=== PATIENT | male | born 1965 | race African-American/Black ===

== ENCOUNTER 2020-10-23 13:12 | Outpatient (RCR) | payer MEDICARE, MEDICAID, SELFPAY ==
--- NOTE | 2020-10-23 15:18 | PCPTNOTE ---
Patient:Jeremiah Corbett Date of :1965 Seated and mobility evaluation Thank you for referring this patient to [facility]. The patient has been evaluated for wheelchair seating and recommendations have been made, with assistance from a Rehab Medical provider present. The findings have been scanned into the patient's EMR. Please review, sign, date and return this recognition of care provided. I agree with and certify that the following plan for DME equipment is medically necessary. Nestor Flores MD 10/23/20
== END 2020-10-24 10:09 | disposition home or self-care (01) ==
LOC: ANHPT 13:12
PROVIDERS: PCP Internal Medicine; Referring Provider Internal Medicine; Visit Provider Internal Medicine
DX: G37.3 Acute transverse myelitis in demyelinating disease of central nervous system (principal)
CPT/HCPCS: 97163

== ENCOUNTER 2021-12-01 20:58 | Observation (INO) | payer MEDICARE, MEDICAID, SELFPAY ==
--- NOTE | ~2021-12-01 | US_ITS ---
EXAMINATION: US venous doppler [facility] DATE: 12/02/2021 09:23 INDICATION: Lower limb pain and swelling TECHNIQUE: Grayscale ultrasound images without and with compression and Doppler ultrasound images of the bilateral lower extremity veins were obtained. COMPARISON: None. FINDINGS: The visualized portions of right common femoral vein, profunda (deep) femoral vein, femoral vein, pop liteal vein, posterior tibial veins, peroneal veins, lesser saphenous vein and greater saphenous vein outflow are patent. The visualized portions of left common femoral vein, profunda femoral vein, femoral vein, popliteal v ein, posterior tibial veins, peroneal veins, lesser saphenous vein and greater saphenous vein outflow are patent. IMPRESSION: 1. No deep venous thrombosis in either lower limb. Reviewed, dictated and finalized at location B.
--- NOTE | ~2021-12-01 | US_ITS ---
EXAMINATION: US arterial ankle brachial ind DATE: 12/02/2021 14:39 INDICATION: Bilateral heel wounds. Diabetes. Hypercholesterolemia. Hypertension. Trophic changes and edema of the lower extremities. TECHNIQUE: Segmental pressures and plethysmographic and Doppler waveforms of the brachial and lower e xtremity arteries were obtained. COMPARISON: None. FINDINGS: Right and left brachial artery pressures of 102 mm Hg and 90 mm Hg, respectively, are concordant (nor mal difference <= 30 mmHg). The right ankle-brachial index (TERE) is 0.67 (normal >= 0.9-1.0). The right great toe-brachial index (TBI) is 0.53 (normal >= 0.65). Arterial Doppler waveforms are monophasic. The left TERE is 0.76. The left TBI is 0.66. Arterial Doppler waveforms are monophasic. IMPRESSION: Abnormally low bilateral TERE of 0.67 on the right and 0.76 on the left Abnormally low right TBI of 0.53 Reviewed, dictated and finalized at Location A. Reviewed, dictated and finalized at location A.
--- NOTE | ~2021-12-01 | XR_ITS ---
EXAMINATION: XR foot RT 2V INDICATION: Diabetic ulcer TECHNIQUE: Two views of the right foot are obtained. COMPARISON: None available FINDINGS: There appears to be a plantar soft tissue ulceration of the foot. There is dorsal soft tiss ue swelling overlying the metatarsals. Bone alignment is normal. There is no fracture. The joint spac es are maintained. IMPRESSION: 1. Soft tissue swelling and possible plantar ulceration of the foot without acute osseous abnormality . Reviewed, dictated and finalized at location F. IMPRESSION: 1. Soft tissue swelling and possible plantar ulceration of the foot without acu te osseous abnormality.
--- NOTE | ~2021-12-01 | CT_ITS ---
EXAMINATION: CT abdomen pelvis wo con DATE: 12/02/2021 08:42 INDICATION: Osteomyelitis. TECHNIQUE: Computed tomography (CT) of the abdomen and pelvis was performed without intravenous contr ast. Automated exposure control and iterative reconstruction technique were employed. The dose-length product was 816.42 mGy-cm. COMPARISON: Lumbar spine radiograph 11/30/2012 FINDINGS: The visualized portions of the lung bases demonstrate mild atelectasis. There is mild scarr ing in paraspinal right lower lobe. No pleural effusion. The heart size is normal. There are coronary artery calcifications. There are changes of coronary artery bypass grafting. No pericardial effusion . The liver, gallbladder, spleen, pancreas, adrenal glands, and kidneys are normal. There is no uroli thiasis. A penile prosthesis is noted. There is a large volume of stool in the colon. There are no di lated loops of bowel. The appendix is not visualized. There are no pathologically enlarged lymph node s. There is no free intraperitoneal fluid. There is a sacral decubitus ulcer. There is subcutaneous f at stranding in this area, consistent with inflammation. There are erosions of the coccyx, consistent with osteomyelitis. There are changes of anterior and posterior fusion procedures at L4-L5. There is moderate thoracic and lumbar spondylosis. IMPRESSION: 1. Sacral decubitus ulcer with coccygeal osteomyelitis. Reviewed, dictated and finalized at location A.
[2021-12-01 21:07] VITALS: BP 127/57; PULSE 80; RESP 18; TEMP 36.4; O2SAT 100
--- NOTE | 2021-12-01 22:49 | ED.WOUNDLAC ---
HPI - Wound/Laceration General Chief Complaint: Wound/Laceration Stated Complaint: foot pain, bleeding, swelling Time Seen by Provider: 12/01/21 22:35 Source: patient Mode of arrival: wheelchair Limitations: no limitations History of Present Illness HPI narrative: Pt WC bound for a year. Pt presents with wounds to heals and sacral area that are now bleeding and draining. Pt denies fever. Pt has had wound care in past but not currently. Treatments prior to arrival: bandage Related Data Home Medications Medication Instructions Recorded Confirmed amlodipine 5 mg-valsartan 320 mg 1 tablet PO DAILY 07/26/19 11/01/19 tablet dapagliflozin 10 mg tablet 10 mg PO DAILY 07/26/19 11/01/19 ergocalciferol (vitamin D2) 1,250 50,000 unit PO WEEKLY 07/26/19 11/01/19 mcg (50,000 unit) capsule gabapentin 300 mg capsule 300 mg PO DAILY 07/26/19 11/01/19 insulin detemir U-100 100 unit/mL 100 unit SUB-Q DAILY 07/26/19 11/01/19 (3 mL) subcutaneous pen lubiprostone 8 mcg capsule 8 mcg PO DAILY 07/26/19 11/01/19 metformin 1,000 mg tablet 1,000 mg PO DAILY 07/26/19 11/01/19 metoprolol succinate 50 mg 50 mg PO DAILY 07/26/19 11/01/19 tablet,extended release 24 hr nitroglycerin 0.4 mg sublingual 0.4 mg SUBLINGUAL Q5M PRN 07/26/19 11/01/19 tablet omeprazole 20 mg tablet,delayed 20 mg PO DAILY 07/26/19 11/01/19 release quetiapine 100 mg tablet 100 mg PO BID 07/26/19 11/01/19 rosuvastatin 20 mg tablet 20 mg PO DAILY 07/26/19 11/01/19 ticagrelor 90 mg tablet 90 mg PO Q12H 07/26/19 11/01/19 tizanidine 4 mg tablet 4 mg PO TID PRN 07/26/19 11/01/19 Allergies Allergy/AdvReac Type Severity Reaction Status Date / Time No Known Allergies Allergy Unverified 11/01/19 11:10 Review of Systems Review of Systems: All systems reviewed & are unremarkable except as noted in HPI and below PMFSH Past Medical History Medical History (Updated 12/02/21 @ 01:14 by Christy Martini III, DO) Anxiety Benign hypertension Chest pain Coronary artery disease (CAD) excluded Depression Diabetes mellitus Essential hypertension Hyperlipidemia Hypersomnia Mixed anxiety depressive disorder Peripheral vascular disease Vitamin D deficiency Surgical History Surgical History History of coronary artery bypass graft 2011 Family History Family History Father Epilepsy Other Hypertension Social History Social History Smoking status: Never smoker Exam Const: General: no acute distress Orientation/consciousness: patient oriented x3 Resp: Effort & Inspection: normal respiratory effort Auscultation: clear to auscultation bilaterally Cardio: Rate: regular rate Rhythm: regular rhythm GI: GI Palp: Yes Soft to palpation Auscultation: normal bowel sounds Back/Spine/Pelvis: Other: large deep sacral decub with drainage Skin: Other: decubitus ulcer to right heal bleeding Neuro: General: patient oriented x3 Extrem: General: edema Psych: Mental Status: mental status grossly normal Thought content: Yes Normal thought content present Course Vital Signs Vital signs: Vital Signs Temperature 97.6 F 12/01/21 21:07 Pulse Rate 80 12/01/21 21:07 Respiratory Rate 18 12/01/21 21:07 Blood Pressure 127/57 L 12/01/21 21:07 Pulse Oximetry 100 12/01/21 21:07 Temperature 97.8 F 12/01/21 22:55 Pulse Rate 102 H 12/02/21 02:34 Respiratory Rate 20 12/02/21 02:34 Blood Pressure 128/70 12/02/21 02:34 Pulse Oximetry 99 12/02/21 02:34 MDM - Wound/Laceration Lab Data Result diagrams: 12/02/21 00:09 12/02/21 00:09 Labs: Lab Results 12/02/21 12/02/21 12/02/21 Range/Units 00:08 00:09 00:09 WBC 10.0 (4.5-10.0) K/mm3 RBC 4.25 L (4.6-6.20) M/mm3 Hgb 11.3 L (14.0-18.0) g/dL Hct 37.2 L (42.0-52.0) % MCV
[2021-12-01 22:55] VITALS: BP 144/91; PULSE 78; RESP 24; TEMP 36.6; O2SAT 99
--- NOTE | 2021-12-01 22:59 | PC.NURSE ---
Patient assisted onto stretcher using Rosalee lift safely and with no incident. Sacral wound present. Malodorous. No dressing on arrival. New dressing applied. Decubitus ulcer present to bilat heels. R heel bleeding. Dressing from home removed. New dressing applied.
[2021-12-02] VITALS (11 sets, daily range): BP systolic 111–135; BP diastolic 64–80; PULSE 60–102; RESP 16–24; TEMP 37.1–37.6; O2SAT 97–100; BMI 28.2
[2021-12-02 00:25] LABS: Basophils Absolute Auto 0.1 K/mm3 (0.0-0.1); Basophils Percent Auto 0.8 % (0.2-1.2); Eosinophils Absolute Auto 0.2 K/mm3 (0-0.3); Eosinophils Percent Auto 2.4 % (0-4.4); Hematocrit 37.2 % (42.0-52.0); Hemoglobin 11.3 g/dL (14.0-18.0); Immature Granulocyte Absolute 0.03 K/mm3 (0.00-0.031); Immature Granulocyte Percent A 0.3 % (0-0.5); Mean Corpuscular HGB Conc 30.4 g/dl (32-36); Mean Corpuscular Hemoglobin 26.6 pg (26-34); Mean Corpuscular Volume 87.5 fl (80-100); Mean Platelet Volume 9.3 fl (7.4-10.4); Monocytes Absolute Auto 0.8 K/mm3 (0.1-0.6); Monocytes Percent Auto 7.7 % (2.6-8.5); Neutrophils Percent Auto 69.8 % (45.5-73.1); Platelet Count Result 431 k/mm3 (150-375); Red Blood Count 4.25 M/mm3 (4.6-6.20); Red Cell Distribution Width 15.2 % (11.5-14.5)
[2021-12-02 00:31] LABS: INR 1.1; Prothrombin Time 13.9 Seconds (11.1-14.7)
[2021-12-02 00:31] LABS: Lactic Acid Reflex 1.8 mmol/L (0.7-2.0)
[2021-12-02 00:32] LABS: Partial Thromboplastin Time 26.8 SECONDS (22.3-36.8)
[2021-12-02 00:34] LABS: Alanine Aminotransferase 24 U/L (4-50); Alkaline Phosphatase 101 U/L (38-126); Anion Gap 5 mmol/L (8-16); Aspartate Amino Transferase 25 U/L (17-59); Bilirubin,Total 0.2 mg/dL (0.2-1.3); Blood Urea Nitrogen 17 mg/dL (9-20); Carbon Dioxide 28 mmol/L (22-30); Chloride 104 mmol/L (98-107); Estimated CRCL calculation 90 ml/min; Estimated Glomerular Filt Rate > 60; Glucose 118 mg/dL (65-110); Potassium 4.1 mmol/L (3.4-5.0); Sodium 137 mmol/L (137-145)
--- NOTE | 2021-12-02 01:00 | PM.IMHP ---
H&P: HPI History of Present Illness Date/Time: 12/02/21 01:00 Chief Complaint: ULCERS Narrative: This is a 56-year-old male with past medical history significant for diabetes mellitus, peripheral diabetic neuropathy, coronary artery disease, peripheral vascular disease, hypertension, transverse myelitis with resultant paraplegia patient is wheelchair-bound, chronic pressure ulcers. Patient was brought to the emergency room due to 's concerns for his worsening in multiple pressure ulcers present in his sacral area hip area and heels. Patient denies any fevers, rigors, chills, nausea vomiting, chest pain, PND, orthopnea, shortness of breath, has good appetite. Patient has been in and out of nursing homes for the last several months according to he developed this sacral ulcers since September when he was at a resident at a [facility]. Preliminary workup is significant for CBC with a hemoglobin of 11. X-ray of the foot did not show bone abnormalities. Patient is been admitted for further evaluation management and treatment. Review of Systems Review of Systems: Worsening pressure ulcers presenting sacrum hip and heels Constitutional: Constitutional: Denies chills, Denies fatigue, Denies fever(s), Denies malaise, Denies night sweats, Denies poor appetite and Denies weakness Eyes: Eyes: Denies change in vision ENT: Denies dysphagia, Denies vertigo, Denies dizziness, Denies nasal congestion, Denies nasal discharge, Denies nasal obstruction and Denies odynophagia Respiratory: Respiratory: Denies cough, Denies excessive phlegm production and Denies dyspnea Gastrointestinal: Gastrointestinal: Denies abdominal pain, Denies dyspepsia, Denies heartburn, Denies nausea and Denies vomiting Genitourinary: Genitourinary: Reports no additional male genitourinary complaints and Reports as per HPI Musculoskeletal: Musculoskeletal: Denies arthralgias Integumentary/Breasts: Skin/Breast: Reports skin ulcer, Reports sores and Reports wounds Comments: Bilateral his, sacral area, hip area. Neurologic: Comments: Paraplegia Psychiatric: Psychiatric: Reports no additional psychiatric complaints and Reports as per HPI Endocrine: Endocrine: Denies cold intolerance, Denies heat intolerance, Denies polyphagia, Denies polydipsia and Denies palpitations Hematologic/Lymphatic: Hematologic/Lymphatic: Reports no additional hematologic/lymphatic complaints and Reports as per HPI Allergic/Immunologic: Allergic/Immunologic: Reports no additional allergic/immunologic complaints and Reports as per HPI [facility] Past Medical History Medical History (Updated 12/02/21 @ 04:01 by Dilma Velez MD) Anxiety Benign hypertension Chest pain Coronary artery disease (CAD) excluded Depression Diabetes mellitus Essential hypertension Hyperlipidemia Hypersomnia Mixed anxiety depressive disorder Peripheral vascular disease Vitamin D deficiency Surgical History Surgical History History of coronary artery bypass graft 2012 Family History Family History Father Epilepsy Social History Social History Smoking status: Never smoker Alcohol intake: current Substance use: never Spiritual care concerns: No Meds Home Medications and Allergies Home Medications Medication Instructions Recorded Confirmed Type amlodipine 5 mg-valsartan 320 mg 1 tablet PO DAILY 07/26/19 11/01/19 History tablet dapagliflozin 10 mg tablet 10 mg PO DAILY 07/26/19 11/01/19 History ergocalciferol (vitamin D2) 1,250 50,000 unit PO WEEKLY 07/26/19 11/01/19 History mcg (50,000 unit) capsule gabapentin 300 mg capsule 300 mg PO DAILY 07/26/19 11/01/19 History insulin detemir U-100 100 unit/mL 100 unit SUB-Q DAILY 07/26/19 11/01/19 History (3 mL) subcutaneous pen lubiprostone 8 mcg capsule 8 mcg PO DAILY
[2021-12-02 01:13] LABS: Erythrocyte Sedimentation Rate 33 mm/hr (0-20)
[2021-12-02] MEDS: PIPERACILLIN/TAZOBACTAM SOD 4.5 GM in SODIUM CHLORIDE 0.9% IV 100 ML 200 ML IVPB (02:14)
--- NOTE | 2021-12-02 03:17 | PC.NURSE ---
Patient arrived safely to floor and transferred to hospital bed with no incident.
--- NOTE | 2021-12-02 03:55 | ADMGEN ---
This patient, Jeremiah Rodriguez , was admitted to 3 [facility] Surg Room 307-01. Patient/family oriented to hospital policies and general routines including ID bracelet, bed and alarms, visiting hours, pain management, procedures, bathroom and other care routines, personal items, smoking policy, room service/diet, and visiting hours. Information on how to activate the Rapid Response Team has been discussed. Patient/Family are encouraged to report perceived risks to care and to ask questions if they do not understand what they are told or what they should do.
[2021-12-02 07:28] LABS: Hemoglobin A1C 6.4 % (<5.7)
[2021-12-02 07:55] LABS: Glucose Point of Care 130 mg/dl (65-105)
--- NOTE | 2021-12-02 10:12 | P.PNIM_ITS ---
Progress Note: A&P Assessment and Plan (1) Osteomyelitis of coccyx: Code(s): M86.9 - Osteomyelitis, unspecified Status: Acute Assessment and Plan: * CT abdomen pelvis showed sacral decubitus ulcer with coccygeal osteomyelitis. * Blood cultures pending * Wound cultures taken today. * Surgery and Wound Care been consulted and advised the wounds have no active infection with granulating tissue in the base, which appear stable. Clinically does not appear to be acute osteomyelitis d/t WBC count normal, afebrile, no exposed bone, and healthy granulating tissue. * Recommend continue local wound care for now and monitor, no surgical debridement, D/C IV abx. * Follow up in OP wound care in [place], [place]. * silver gel dressing changes and cover with mepilex border dressing. * Likely discharge tomorrow. (2) Decubitus ulcer of sacral area: Qualifiers: Pressure injury stage: unspecified pressure injury stage Qualified Code(s): L89.159 - Pressure ulcer of sacral region, unspecified stage Code(s): L89.159 - Pressure ulcer of sacral region, unspecified stage Status: Acute Assessment and Plan: * Patient started on vancomycin in ER. Will continue until cultures returned. * Surgery consulted, will follow for recommendations. * Wound care consulted, and we do appreciate their recommendations. * Local care, dressing changes. * Around the clock turning schedule Q 2 hrs * Plan as above. (3) Decubitus ulcer of foot: Qualifiers: Laterality: right Pressure injury stage: unspecified pressure injury stage Qualified Code(s): L89.899 - Pressure ulcer of other site, unspecified stage Code(s): L89.899 - Pressure ulcer of other site, unspecified stage Status: Acute Assessment and Plan: * Right foot with heel and plantar ulcers * Left heel with healed ulcer. * Foot x-ray showed soft tissue swelling and possible plantar ulceration of the foot without acute osseous abnormality * Wabble boots to keep heels elevated. * Eucerin cream for legs and feet. (4) Peripheral vascular disease: Code(s): I73.9 - Peripheral vascular disease, unspecified Status: Acute Assessment and Plan: * ABIs show abnormally low bilateral TERE of 0.67 on the right and 0.76 on the left. Abnormally low right TBI of 0.53 * Chronic appearing nonhealing ulcers of the right and left foot. * Patient is non-ambulatory, PT/ OT ordered. * Venous duplex showed no DVTs. * Will recommend outpatient follow-up with Vascular Surgery. (5) Allergic asthma: Code(s): J45.909 - Unspecified asthma, uncomplicated Status: Acute Assessment and Plan: Continue albuterol Not actively wheezing (6) Benign hypertension: Code(s): I10 - Essential (primary) hypertension Status: Acute Assessment and Plan: * Continue home meds * Continue to monitor * Patient is normotensive (7) Diabetes mellitus: Code(s): E11.9 - Type 2 diabetes mellitus without complications Status: Acute Assessment and Plan: * Blood glucose 118 today. * Continue home meds,Holding metformin * Accu-Cheks AC and HS * Carb consistent diet. (8) DVT prophylaxis: Code(s): Z29.9 - Encounter for prophylactic measures, unspecified Status: Acute Assessment and Plan: SCDs (9) Coronary artery disease: Code(s): I25.10 - Atherosclerotic heart disease of [place] coronary artery without angina pectoris Status: Acute Assessment and Plan: * Patient has past med
--- NOTE | 2021-12-02 10:12 | PM.IMPN ---
Progress Note: A&P Assessment and Plan (1) Osteomyelitis of coccyx: Code(s): M86.9 - Osteomyelitis, unspecified Status: Acute Assessment and Plan: CT abdomen pelvis showed sacral decubitus ulcer with coccygeal osteomyelitis. Blood cultures pending Wound cultures taken today. Surgery and Wound Care been consulted and advised the wounds have no active infection with granulating tissue in the base, which appear stable. Clinically does not appear to be acute osteomyelitis d/t WBC count normal, afebrile, no exposed bone, and healthy granulating tissue. Recommend continue local wound care for now and monitor, no surgical debridement, D/C IV abx. Follow up in OP wound care in [place], [place]. silver gel dressing changes and cover with mepilex border dressing. Likely discharge tomorrow. (2) Decubitus ulcer of sacral area: Qualifiers: Pressure injury stage: unspecified pressure injury stage Qualified Code(s): L89.159 - Pressure ulcer of sacral region, unspecified stage Code(s): L89.159 - Pressure ulcer of sacral region, unspecified stage Status: Acute Assessment and Plan: Patient started on vancomycin in ER. Will continue until cultures returned. Surgery consulted, will follow for recommendations. Wound care consulted, and we do appreciate their recommendations. Local care, dressing changes. Around the clock turning schedule Q 2 hrs Plan as above. (3) Decubitus ulcer of foot: Qualifiers: Laterality: right Pressure injury stage: unspecified pressure injury stage Qualified Code(s): L89.899 - Pressure ulcer of other site, unspecified stage Code(s): L89.899 - Pressure ulcer of other site, unspecified stage Status: Acute Assessment and Plan: Right foot with heel and plantar ulcers Left heel with healed ulcer. Foot x-ray showed soft tissue swelling and possible plantar ulceration of the foot without acute osseous abnormality Wabble boots to keep heels elevated. Eucerin cream for legs and feet. (4) Peripheral vascular disease: Code(s): I73.9 - Peripheral vascular disease, unspecified Status: Acute Assessment and Plan: ABIs show abnormally low bilateral TERE of 0.67 on the right and 0.76 on the left. Abnormally low right TBI of 0.53 Chronic appearing nonhealing ulcers of the right and left foot. Patient is non-ambulatory, PT/ OT ordered. Venous duplex showed no DVTs. Will recommend outpatient follow-up with Vascular Surgery. (5) Allergic asthma: Code(s): J45.909 - Unspecified asthma, uncomplicated Status: Acute Assessment and Plan: Continue albuterol Not actively wheezing (6) Benign hypertension: Code(s): I10 - Essential (primary) hypertension Status: Acute Assessment and Plan: Continue home meds Continue to monitor Patient is normotensive (7) Diabetes mellitus: Code(s): E11.9 - Type 2 diabetes mellitus without complications Status: Acute Assessment and Plan: Blood glucose 118 today. Continue home meds,Holding metformin Accu-Cheks AC and HS Carb consistent diet. (8) DVT prophylaxis: Code(s): Z29.9 - Encounter for prophylactic measures, unspecified Status: Acute Assessment and Plan: SCDs (9) Coronary artery disease: Code(s): I25.10 - Atherosclerotic heart disease of [place] coronary artery without angina pectoris Status: Acute Assessment and Plan: Patient has past medical history of CABG. Chest pain-free at present. Continue ticagrelor. Continue to monitor Subjective Date/time seen: 12/02/21 10:12 56-year-old male with past medical history of hypertension, diabetes mellitus, CABG, peripheral vascular disease, admitted for concerns of decubitus ulcers on his sacrum and right heel. Patient was examined at bedside today. He denies any current pain, but requests physical therapy. He states
--- NOTE | 2021-12-02 11:26 | PM.CNGS ---
Assessment and Plan Assessment and plan (1) Decubitus ulcer of sacral area: Qualifiers: Pressure injury stage: unspecified pressure injury stage Qualified Code(s): L89.159 - Pressure ulcer of sacral region, unspecified stage Code(s): L89.159 - Pressure ulcer of sacral region, unspecified stage Status: Acute Assessment and Plan: Stage III chronic sacral decubitus ulcer with granulating tissue in the base and no signs of active infection. He also has a chronic stage II right ischial decubitus ulcer that has granulating tissue without any signs of infection. These wounds appears stable at this time. CT abdomen and pelvis reviewed with evidence of bony erosion of the coccyx, concerning for coccygeal osteomyelitis, no fluid collection or abscess. His WBC count is normal and he is afebrile. There is no bone exposed and there is healthy granulating tissue at the base of the sacral wound. Clinically, this does not correlate with acute osteomyelitis. The patient is a poor historian and it is difficult to decipher how long he has had these wounds. It is possible this could be related to chronic osteomyelitis, but without any signs of active infection or exposed bone, we would recommend to continue with local wound care for now and monitor. If he develops leukocytosis or fever > 100.5F, then we could consider treating him acutely. Would recommend continuing local wound care with silver gel dressing changes and cover with mepilex border dressing. No indication for debridement or surgical intervention at this time. Recommend frequent turning and pressure offloading. Discussed the importance of taking care of these wounds at home and preventing pressure for extended periods of time on his wounds. The patient is followed at a wound clinic in [place] and believes he was last seen about 2 months ago. Would recommend he follow-up there after discharge for further management of his wounds. (2) Decubitus ulcer of foot: Qualifiers: Laterality: right Pressure injury stage: unspecified pressure injury stage Qualified Code(s): L89.899 - Pressure ulcer of other site, unspecified stage Code(s): L89.899 - Pressure ulcer of other site, unspecified stage Status: Acute Assessment and Plan: Stage II right decubitus heel ulcer and right plantar diabetic foot ulcer. Both wounds appear stable with healthy granulation tissue forming and no signs of active infection. Plain films of the right foot showed no evidence of osteomyelitis. Would recommend continuing local wound care with silver gel dressing changes. No indication for debridement or surgical intervention at this time. Will order waffle boots and keep heels elevated off bed. Also will order Eucerin cream for his lower legs and feet due to his dry skin. (3) Osteomyelitis of coccyx: Code(s): M86.9 - Osteomyelitis, unspecified Status: Acute Assessment and Plan: CT reviewed and suggests coccygeal osteomyelitis. See plan above, under sacral decubitus ulcer. (4) Paraplegia: Code(s): G82.20 - Paraplegia, unspecified Status: Chronic (5) Peripheral vascular disease: Code(s): I73.9 - Peripheral vascular disease, unspecified Status: Acute Assessment and Plan: There is mention of peripheral vascular disease, but nonspecific. He has very weak pedal pulses on palpation. Would recommend TERE's to further evaluate his arterial flow due to his chronic right foot ulcers. (6) Diabetes mellitus: Code(s): E11.9 - Type 2 diabetes mellitus without complications Status: Acute Assessment and Plan: Discussed the importance of glycemic control for wound healing. Hgb A1C 6.4 on admission, so he seems fairly well controlled. (7) Coronary artery disease: Code(s): I25.10 - Atherosclerotic heart disease of [place] coronary artery without angina pectoris Status: Acute (8) Antiplatelet or antithrombotic long-term use
[2021-12-02 11:47] LABS: Glucose Point of Care 102 mg/dl (65-105)
--- NOTE | 2021-12-02 12:49 | PC.NURSE ---
On 12/02/21, the student, Philly Escoto, provided care and completed [facility] documentation on this patient. I have reviewed the student's documentation and agree with the findings.
[2021-12-02] MEDS: LUBIPROSTONE 24 MCG CAPSULE PO (12:51)
[2021-12-02] MEDS: TIZANIDINE HCL 4 MG TABLET PO ×2 (12:51→21:13)
[2021-12-02] MEDS: PANTOPRAZOLE 40 MG TABLET PO (12:51)
[2021-12-02] MEDS: ROSUVASTATIN 10 MG TABLET 40 MG PO (12:52)
[2021-12-02] MEDS: ENOXAPARIN 40 MG/0.4 ML SYRINGE SUB-Q (12:52)
[2021-12-02] MEDS: EZETIMIBE 10 MG TABLET PO (12:52)
[2021-12-02] MEDS: SILVERGEL (ELTA) 45 ML 1 APPLIC TOPICAL (12:52)
[2021-12-02] MEDS: EMPAGLIFLOZIN 25 MG TABLET PO (12:53)
[2021-12-02] MEDS: EUCERIN CREAM 120 GM JAR 1 APPLIC TOPICAL (15:17)
[2021-12-02 16:48] LABS: Glucose Point of Care 178 mg/dl (65-105)
--- NOTE | 2021-12-02 18:05 | PC.NURSE ---
Home medications are not fully updated and patient is unable to confirm all home medications. Patient stated My doctor has not filled a lot of my prescriptions. Pt stated Gisella maynard, helps the patient give him his scheduled medications. RN attempted to call pt's conor at [phone]. RN received a return phone call at [phone]. Conor was unable to confirm majority of the pt's medications. RN received another return phone call at [phone]. Pt's conor is planning on bringing the patient's medication bottles to our facility [facility] (12/02/2021).
[2021-12-02 21:22] LABS: Glucose Point of Care 258 mg/dl (65-105)
[2021-12-03 06:00] VITALS: BP 138/75; PULSE 81; RESP 18; TEMP 37; O2SAT 100
[2021-12-03 06:07] LABS: Basophils Absolute Auto 0.1 K/mm3 (0.0-0.1); Basophils Percent Auto 0.7 % (0.2-1.2); Eosinophils Absolute Auto 0.2 K/mm3 (0-0.3); Eosinophils Percent Auto 2.9 % (0-4.4); Hematocrit 31.1 % (42.0-52.0); Immature Granulocyte Absolute 0.02 K/mm3 (0.00-0.031); Immature Granulocyte Percent A 0.3 % (0-0.5); Lymphocytes Absolute Auto 2.04 K/mm3 (0.9-3.2); Lymphocytes Percent Auto 28.4 % (18.3-44.2); Mean Corpuscular HGB Conc 32.2 g/dl (32-36); Mean Corpuscular Hemoglobin 26.9 pg (26-34); Mean Corpuscular Volume 83.6 fl (80-100); Mean Platelet Volume 9.1 fl (7.4-10.4); Monocytes Absolute Auto 0.6 K/mm3 (0.1-0.6); Monocytes Percent Auto 8.6 % (2.6-8.5); Neutrophils Absolute Auto 4.2 K/mm3 (1.3-6.7); Neutrophils Percent Auto 59.1 % (45.5-73.1); Platelet Count Result 319 k/mm3 (150-375); Red Blood Count 3.72 M/mm3 (4.6-6.20); Red Cell Distribution Width 14.6 % (11.5-14.5); White Blood Count 7.2 K/mm3 (4.5-10.0)
[2021-12-03 06:27] LABS: Alanine Aminotransferase 24 U/L (4-50); Albumin Level 3.2 g/dL (3.5-5.1); Alkaline Phosphatase 86 U/L (38-126); Anion Gap 3 mmol/L (8-16); Aspartate Amino Transferase 24 U/L (17-59); Bilirubin,Total 0.3 mg/dL (0.2-1.3); Blood Urea Nitrogen 11 mg/dL (9-20); Calcium 8.3 mg/dL (8.4-10.2); Carbon Dioxide 26 mmol/L (22-30); Chloride 105 mmol/L (98-107); Estimated CRCL calculation 86 ml/min; Estimated Glomerular Filt Rate > 60; Glucose 83 mg/dL (65-110); Potassium 3.5 mmol/L (3.4-5.0); Sodium 134 mmol/L (137-145)
[2021-12-03] MEDS: TIZANIDINE HCL 4 MG TABLET PO ×2 (06:51→13:49)
--- NOTE | 2021-12-03 07:21 | P.DS_ITS ---
DS: Admitting Diagnosis Discharge Date 12/03/21 1200 Admitting Diagnosis Chronic Pressure Ulcers DS: Discharge Diagnosis Discharge Diagnosis (1) Osteomyelitis of coccyx: Code(s): M86.9 - Osteomyelitis, unspecified Status: Acute Assessment and Plan: 56-year-old male with past medical history of hypertension, diabetes mellitus, CABG, peripheral vascular disease, admitted for concerns of decubitus ulcers on his sacrum and right heel that have been worsening lately. * CT abdomen pelvis showed sacral decubitus ulcer with coccygeal osteomyelitis. * Blood cultures showed no growth. * Surgery and Wound Care been consulted and advised the wounds have no active infection with granulating tissue in the base, which appear stable. Clinically does not appear to be acute osteomyelitis d/t WBC count normal, afebrile, no exposed bone, and healthy granulating tissue. * Recommend continue local wound care for now and monitor, no surgical debridement, D/C IV abx. * Follow up in outpatient wound care in [place], [place]. * For wound care: silver gel dressing changes and cover with mepilex border dr ortiz. * Wound cultures pending, will follow these. * Return if signs of infection, to include fever, warmth, redness, increased pain or leakage from the ulcers. PT recommended home health facility upon discharge, patient will be staying at home with girlfriend. * Discussed with care coordination, and patient does not currently qualify for rehab. Patient will be discharged to home. He is requesting ambulance transport. Care coordination has confirmed home health care with [facility] is in place. (2) Decubitus ulcer of sacral area: Qualifiers: Pressure injury stage: unspecified pressure injury stage Qualified Code(s): L89.159 - Pressure ulcer of sacral region, unspecified stage Code(s): L89.159 - Pressure ulcer of sacral region, unspecified stage Status: Acute Assessment and Plan: * Plan as above. (3) Decubitus ulcer of foot: Qualifiers: Laterality: right Pressure injury stage: unspecified pressure injury stage Qualified Code(s): L89.899 - Pressure ulcer of other site, unspecified stage Code(s): L89.899 - Pressure ulcer of other site, unspecified stage Status: Acute Assessment and Plan: * Right foot with heel and plantar ulcers * Left heel with healed ulcer. * Foot x-ray showed soft tissue swelling and possible plantar ulceration of the foot without acute osseous abnormality * Eucerin cream for legs and feet due to dryness- continue after discharge. (4) Peripheral vascular disease: Code(s): I73.9 - Peripheral vascular disease, unspecified Status: Acute Assessment and Plan: * ABIs show abnormally low bilateral TERE of 0.67 on the right and 0.76 on the left. Abnormally low right TBI of 0.53 * Chronic appearing nonhealing ulcers of the right and left foot. * Patient is non-ambulatory, PT/ OT ordered. * Patient advised to continue LE strengthening, endurance building activities, and safety education. Patient uses electric wheelchair baseline and girlfriend able to assist with transfers to bed, mobility. * Venous duplex showed no DVTs. * Will recommend outpatient follow-up with Vascular Surgery. (5) Allergic asthma: Code(s): J45.909 - Unspecified asthma, uncomplicated Status: Acute Assessment and Plan: * Continue albuterol * Not actively wheezing * Continue home inhaler therapy as needed.
--- NOTE | 2021-12-03 07:21 | PM.DS ---
DS: Admitting Diagnosis Discharge Date 12/03/21 1200 Admitting Diagnosis Chronic Pressure Ulcers DS: Discharge Diagnosis Discharge Diagnosis (1) Osteomyelitis of coccyx: Code(s): M86.9 - Osteomyelitis, unspecified Status: Acute Assessment and Plan: 56-year-old male with past medical history of hypertension, diabetes mellitus, CABG, peripheral vascular disease, admitted for concerns of decubitus ulcers on his sacrum and right heel that have been worsening lately. CT abdomen pelvis showed sacral decubitus ulcer with coccygeal osteomyelitis. Blood cultures showed no growth. Surgery and Wound Care been consulted and advised the wounds have no active infection with granulating tissue in the base, which appear stable. Clinically does not appear to be acute osteomyelitis d/t WBC count normal, afebrile, no exposed bone, and healthy granulating tissue. Recommend continue local wound care for now and monitor, no surgical debridement, D/C IV abx. Follow up in outpatient wound care in [place], [place]. For wound care: silver gel dressing changes and cover with mepilex border dressing. Wound cultures pending, will follow these. Return if signs of infection, to include fever, warmth, redness, increased pain or leakage from the ulcers. PT recommended home health facility upon discharge, patient will be staying at home with girlfriend. Discussed with care coordination, and patient does not currently qualify for rehab. Patient will be discharged to home. He is requesting ambulance transport. Care coordination has confirmed home health care with [facility] is in place. (2) Decubitus ulcer of sacral area: Qualifiers: Pressure injury stage: unspecified pressure injury stage Qualified Code(s): L89.159 - Pressure ulcer of sacral region, unspecified stage Code(s): L89.159 - Pressure ulcer of sacral region, unspecified stage Status: Acute Assessment and Plan: Plan as above. (3) Decubitus ulcer of foot: Qualifiers: Laterality: right Pressure injury stage: unspecified pressure injury stage Qualified Code(s): L89.899 - Pressure ulcer of other site, unspecified stage Code(s): L89.899 - Pressure ulcer of other site, unspecified stage Status: Acute Assessment and Plan: Right foot with heel and plantar ulcers Left heel with healed ulcer. Foot x-ray showed soft tissue swelling and possible plantar ulceration of the foot without acute osseous abnormality Eucerin cream for legs and feet due to dryness- continue after discharge. (4) Peripheral vascular disease: Code(s): I73.9 - Peripheral vascular disease, unspecified Status: Acute Assessment and Plan: ABIs show abnormally low bilateral TERE of 0.67 on the right and 0.76 on the left. Abnormally low right TBI of 0.53 Chronic appearing nonhealing ulcers of the right and left foot. Patient is non-ambulatory, PT/ OT ordered. Patient advised to continue LE strengthening, endurance building activities, and safety education. Patient uses electric wheelchair baseline and girlfriend able to assist with transfers to bed, mobility. Venous duplex showed no DVTs. Will recommend outpatient follow-up with Vascular Surgery. (5) Allergic asthma: Code(s): J45.909 - Unspecified asthma, uncomplicated Status: Acute Assessment and Plan: Continue albuterol Not actively wheezing Continue home inhaler therapy as needed. (6) Benign hypertension: Code(s): I10 - Essential (primary) hypertension Status: Acute Assessment and Plan: Continue home meds Continue to monitor Patient has been normotensive during this stay. (7) Diabetes mellitus: Code(s): E11.9 - Type 2 diabetes mellitus without complications Status: Acute Assessment and Plan: Blood glucose 118 today. Continue home meds and restart metformin. Continu
[2021-12-03 07:26] LABS: Glucose Point of Care 79 mg/dl (65-105)
--- NOTE | 2021-12-03 07:45 | PC.NURSE ---
Pts friend did not bring home medications. Patient said she could not find the hospital .
[2021-12-03 08:08] VITALS: PULSE 83
[2021-12-03] MEDS: carvediloL 6.25 MG TABLET PO ×2 (08:08→16:39)
[2021-12-03] MEDS: EMPAGLIFLOZIN 25 MG TABLET PO (08:09)
[2021-12-03] MEDS: ROSUVASTATIN 10 MG TABLET 40 MG PO (08:11)
[2021-12-03] MEDS: EZETIMIBE 10 MG TABLET PO (08:12)
[2021-12-03] MEDS: EUCERIN CREAM 120 GM JAR 1 APPLIC TOPICAL (08:13)
[2021-12-03] MEDS: SILVERGEL (ELTA) 45 ML 1 APPLIC TOPICAL (08:13)
[2021-12-03] MEDS: ENOXAPARIN 40 MG/0.4 ML SYRINGE SUB-Q (08:14)
[2021-12-03 11:44] LABS: Glucose Point of Care 107 mg/dl (65-105)
[2021-12-03 11:48] VITALS: BMI 28.2
--- NOTE | 2021-12-03 12:12 | PM.PNGS ---
Progress Note: A&P Assessment and Plan (1) Decubitus ulcer of sacral area: Qualifiers: Pressure injury stage: unspecified pressure injury stage Qualified Code(s): L89.159 - Pressure ulcer of sacral region, unspecified stage Code(s): L89.159 - Pressure ulcer of sacral region, unspecified stage Status: Acute Assessment and Plan: Stage III chronic sacral decubitus ulcer with granulating tissue in the base and no signs of active infection. He also has a chronic stage II right ischial decubitus ulcer that has granulating tissue without any signs of infection. These wounds appears stable at this time. CT abdomen and pelvis reviewed with evidence of bony erosion of the coccyx, concerning for coccygeal osteomyelitis, no fluid collection or abscess. His WBC count is normal and he remains afebrile. There is no bone exposed and there is healthy granulating tissue at the base of the sacral wound. Clinically, this does not correlate with acute osteomyelitis. There is no indication for surgical intervention. Would recommend to continue with local wound care with silver gel dressing changes. Educated the patient again on frequent turning and repositioning even when up in the wheelchair during the day. Okay to discharge from our standpoint. No antibiotics needed. Follow-up with wound care in [place]. (2) Decubitus ulcer of foot: Qualifiers: Laterality: right Pressure injury stage: unspecified pressure injury stage Qualified Code(s): L89.899 - Pressure ulcer of other site, unspecified stage Code(s): L89.899 - Pressure ulcer of other site, unspecified stage Status: Acute Assessment and Plan: Stage II right decubitus heel ulcer and right plantar diabetic foot ulcer. Both wounds appear stable with healthy granulation tissue forming and no signs of active infection. Plain films of the right foot showed no evidence of osteomyelitis. Recommend continuing local wound care with silver gel dressing changes. No indication for debridement or surgical intervention at this time. Continue waffle boots and elevating heels off bed. Continue Eucerin cream for his lower legs and feet due to his dry skin. Okay to discharge. No antibiotics needed. Follow-up with wound care in [place]. (3) Osteomyelitis of coccyx: Code(s): M86.9 - Osteomyelitis, unspecified Status: Acute Assessment and Plan: CT reviewed and suggests coccygeal osteomyelitis. See plan above, under sacral decubitus ulcer. (4) Paraplegia: Code(s): G82.20 - Paraplegia, unspecified Status: Chronic (5) Peripheral vascular disease: Code(s): I73.9 - Peripheral vascular disease, unspecified Status: Acute Assessment and Plan: TERE's show decreased TERE bilaterally, worse on right, and decreased right TBI with borderline left TBI. Would benefit from outpatient referral to vascular surgery to see if he would benefit from any surgical intervention for improved arterial flow to help promote healing for his right foot ulcers. Discussed this all with the patient. (6) Diabetes mellitus: Code(s): E11.9 - Type 2 diabetes mellitus without complications Status: Acute (7) Coronary artery disease: Code(s): I25.10 - Atherosclerotic heart disease of [place] coronary artery without angina pectoris Status: Acute (8) Antiplatelet or antithrombotic long-term use: Code(s): Z79.02 - can worker (current) use of antithrombotics/antiplatelets Status: Acute Additional Plan I have discussed the patient's case and plan of care with Dr. Lopez Subjective Subjective Date/Time Seen: 12/03/21 12:12 Patient reports: no new complaints and afebrile Interval history: Patient seen and examined. He has no specific complaints at the time of my exam. Tolerating his diet. He has been afebrile and his WBC normal today. Per nursing, they had just changed his dressings and applied silver gel prior to my
--- NOTE | 2021-12-03 12:44 | PCNSR ---
On 12/03/21, the student, Ramona Mayer, provided care and completed [facility] documentation on this patient. I have reviewed the student's documentation and agree with the findings.
--- NOTE | 2021-12-03 13:36 | PC.NURSE ---
On 12/03/21, the student, [ Shaunna Ricketts], provided care and completed [facility] documentation on this patient. I have reviewed the student's documentation and agree with the findings.
[2021-12-03 14:00] VITALS: BP 121/66; PULSE 72; RESP 17; TEMP 36.3; O2SAT 100
--- NOTE | 2021-12-03 14:10 | PC.NURSE ---
On 12/03/21, the student, [ Shaunna Ricketts], provided care and completed [facility] documentation on this patient. I have reviewed the student's documentation and agree with the findings.
[2021-12-03 16:26] LABS: Glucose Point of Care 150 mg/dl (65-105)
[2021-12-03 16:39] VITALS: PULSE 67
--- NOTE | 2021-12-09 09:46 | PC.NURSE ---
Blood cx are negative. Dr. Ashley esparza.
== END 2021-12-03 18:50 | disposition home health service (06) ==
LOC: ANHED 12-02 01:14 → ANH3MEDSUR 12-02 02:24
PROVIDERS: Student in an Organized Health Care Education/Training Program; Admitting Provider Internal Medicine; Emergency Provider Emergency Medicine; PCP Internal Medicine; Visit Provider Internal Medicine
DX: E11.621 Type 2 diabetes mellitus with foot ulcer (principal); L97.419 Non-pressure chronic ulcer of right heel and midfoot with unspecified severity; M86.9 Osteomyelitis, unspecified; L89.159 Pressure ulcer of sacral region, unspecified stage; J45.909 Unspecified asthma, uncomplicated; I73.9 Peripheral vascular disease, unspecified; I10 Essential (primary) hypertension; I25.10 Atherosclerotic heart disease of native coronary artery without angina pectoris; G82.20 Paraplegia, unspecified; Z79.02 Long term (current) use of antithrombotics/antiplatelets; M79.673 Pain in unspecified foot; R22.41 Localized swelling, mass and lump, right lower limb
CPT/HCPCS: 36415; 51701; 73620; 74176; 80053; 82948; 83036; 83605; 85025; 85610; 85652; 85730; 86140; 87040; 93922; 93970; 96365; 96366; 96372; 96375; 96376; 97162; 97166; 99285; A9270; G0378; J0692; J1650; J2543; J3370

== ENCOUNTER 2021-12-05 22:35 | Inpatient (IN) | payer MEDICARE, MEDICAID, SELFPAY ==
--- NOTE | ~2021-12-05 | CT_ITS ---
EXAMINATION: CT abdomen pelvis wo con DATE: 12/06/2021 10:49 INDICATION: coccygeal osteo TECHNIQUE: Computed tomography (CT) of the abdomen and pelvis was performed without intravenous contr ast. Automated exposure control and iterative reconstruction technique were employed. The dose-length product was 1384.06 mGy-cm. COMPARISON: CT abdomen pelvis 12/02/2021. FINDINGS: Lower thorax: Bibasilar scar/atelectasis. Coronary artery calcifications. Liver: Normal. Biliary/Gallbladder: Gallbladder is collapsed. No bile duct dilation. Spleen: Normal. Pancreas: No mass or duct dilation. Adrenals:No mass. Kidneys: No mass, stone, or hydronephrosis. GI tract: No small or large bowel dilation. Normal appendix. The rectum is dilated up up to 6.3 cm by partially formed stool, with surrounding wall thickening. Mesentery/Peritoneum: No ascites, mass, or free air. Retroperitoneum: No mass. Pelvis: Marked bladder distention, penile prosthesis, likely right hydrocele, otherwise the pelvic or terell are within normal limits. Bones/Soft Tissues: Soft tissue defect posterior to the sacrococcygeal junction with surrounding infl ammatory change and induration. No fluid collection. Erosion, sclerosis in the bones of the distal sa paul and coccyx. Unchanged lumbar fusion. Additional Findings: None. IMPRESSION: Fecal impaction. Stable sacral decubitus ulcer and sacrococcygeal osteomyelitis. Reviewed, dictated and finalized at location K. IMPRESSION: Fecal impaction. Stable sacral decubitus ulcer and sacrococcygeal osteomyelitis .
--- NOTE | ~2021-12-05 | XR_ITS ---
XR chest 1V portable DATE: 12/06/2021 06:23 INDICATION: Fever TECHNIQUE: Portable AP chest on 12/06/2021 at 0618 hours COMPARISON: None FINDINGS: Status post sternotomy. Heart size is not optimally evaluated because of rotation and magni fication associated with AP projection. Mild infiltrate or atelectasis is suggested in the left lower lung. The lungs otherwise appear clear. No pleural effusion or pulmonary vascular congestion or pneumothorax. IMPRESSION: Status post sternotomy Mild infiltrate or atelectasis in the left lower lung Reviewed, dictated and finalized at location A.
--- NOTE | ~2021-12-05 | US_ITS ---
EXAMINATION: US abdomen limited DATE: 12/13/2021 08:43 INDICATION: Transaminitis TECHNIQUE: Multiple grayscale and Doppler ultrasound images of the abdomen were obtained. COMPARISON: None available FINDINGS: Bowel gas obscures visualization of the pancreas. The liver is normal with normal echogenic ity and echotexture. No surface nodularity. Normal hepatopetal flow in the main portal vein. The gall bladder is normal with no abnormal wall thickening, pericholecystic fluid or stones. The normal commo n bile duct measures 4 mm. There was no sonographic Paredes sign. IMPRESSION: 1. Normal sonographic study of the gallbladder. Reviewed, dictated and finalized at location A.
--- NOTE | ~2021-12-05 | XR_ITS ---
EXAM: XR abdomen/kub 1V HISTORY: abdominal distention, constipation COMPARISON: None available FINDINGS: Clear lung bases. Normal bowel gas pattern. No organomegaly. No abnormal abdominal calcifi cation. Fractured inferior sternotomy wires. Valve implant. Lumbar fusion hardware. IMPRESSION: No radiographic evidence of obstruction or ileus. Reviewed, dictated and finalized at location K.
[2021-12-05 22:38] VITALS: BP 160/91; PULSE 91; RESP 25; TEMP 37.1; O2SAT 100
--- NOTE | 2021-12-05 22:59 | PC.NURSE ---
Open wounds noted to pts coccyx and perineum.
[2021-12-06] VITALS (10 sets, daily range): BP systolic 119–160; BP diastolic 62–91; PULSE 81–111; RESP 16–28; TEMP 36.4–38.7; O2SAT 97–100
[2021-12-06 01:06] LABS: Basophils Absolute Auto 0.1 K/mm3 (0.0-0.1); Basophils Percent Auto 0.5 % (0.2-1.2); Eosinophils Absolute Auto 0.2 K/mm3 (0-0.3); Eosinophils Percent Auto 1.3 % (0-4.4); Hematocrit 45.1 % (42.0-52.0); Hemoglobin 13.9 g/dL (14.0-18.0); Immature Granulocyte Absolute 0.04 K/mm3 (0.00-0.031); Immature Granulocyte Percent A 0.4 % (0-0.5); Lymphocytes Absolute Auto 1.12 K/mm3 (0.9-3.2); Lymphocytes Percent Auto 9.9 % (18.3-44.2); Mean Corpuscular HGB Conc 30.8 g/dl (32-36); Mean Corpuscular Hemoglobin 26.2 pg (26-34); Mean Corpuscular Volume 85.1 fl (80-100); Monocytes Absolute Auto 0.9 K/mm3 (0.1-0.6); Monocytes Percent Auto 7.6 % (2.6-8.5); Neutrophils Absolute Auto 9.1 K/mm3 (1.3-6.7); Neutrophils Percent Auto 80.3 % (45.5-73.1); Platelet Count Result 340 k/mm3 (150-375); Red Cell Distribution Width 14.5 % (11.5-14.5); White Blood Count 11.4 K/mm3 (4.5-10.0)
--- NOTE | 2021-12-06 01:40 | ED.GENADULT ---
HPI - General Adult General Chief complaint: GI Bleed <Kimberly Hays PA-C - Last Filed: 12/06/21 04:12> Stated complaint: rectal bleed seen last week <Kimberly Hays PA-C - Last Filed: 12/06/21 04:12> Time Seen by Provider: 12/05/21 23:24 <Kimberly Hays PA-C - Last Filed: 12/06/21 04:12> History of Present Illness HPI narrative: Patient is a 56-year-old male with a history of paraplegia, CAD, DM, HTN here for evaluation of a sacral wound with increased discharge. Patient was admitted here from 12/01-12/03 for the same with a surgical consult due to findings on CT scan concerning for osteomyelitis. After work-up, osteomyelitis was considered unlikely, IV abx were discontinued, and patient was discharged home. Wound cultures not resulted, blood cultures negative from that visit. He states that his girlfriend freaked out when she was changing his dressings at home due to reported increased purulent and bloody discharge. Patient has not looked at the area himself, and is unsure if there is increased drainage from the area. He notes feeling cold at home, but otherwise denies nausea, vomiting, increased weakness, malaise. Patient's girlfriend, who is primary caregiver, states that home health has not come to evaluate the patient, and she has had trouble taking care of him at home without assistance. <Kimberly Hays PA-C - Last Filed: 12/06/21 04:12> Related Data Home medications: Home Medications Medication Instructions Recorded Confirmed dapagliflozin 10 mg tablet 10 mg PO DAILY 07/26/19 12/06/21 metformin 1,000 mg tablet 1,000 mg PO BID 07/26/19 12/06/21 metoprolol succinate 50 mg 50 mg PO DAILY 07/26/19 12/06/21 tablet,extended release 24 hr omeprazole 20 mg tablet,delayed 20 mg PO DAILY 07/26/19 12/06/21 release tizanidine 4 mg tablet 4 mg PO TID 07/26/19 12/06/21 Brilinta 90 mg PO QAM 12/02/21 12/06/21 Bydureon BCise 2 mg SUBCUT WEEKLY 12/02/21 12/06/21 Levemir FlexTouch U-100 Insuln 5 unit SUBCUT HS 12/02/21 12/06/21 carvedilol 6.25 mg PO BID 12/02/21 12/06/21 ezetimibe 10 mg PO DAILY 12/02/21 12/06/21 fluticasone propionate 2 spray INTRANASAL QAM 12/02/21 12/06/21 ibuprofen 800 mg PO BID 12/02/21 12/06/21 insulin aspart U-100 [Novolog 5 unit SUBCUT TID 12/02/21 12/06/21 Flexpen U-100 Insulin] lubiprostone 24 mcg PO DAILY 12/02/21 12/06/21 nortriptyline 150 mg PO HS 12/02/21 12/06/21 rosuvastatin 40 mg PO DAILY 12/02/21 12/06/21 <RICHARD Kolb Last Filed: 12/06/21 04:12> Allergies/adverse reactions: Allergies Allergy/AdvReac Type Severity Reaction Status Date / Time No Known Allergies Allergy Verified 12/05/21 22:51 <RICHARD Kolb Last Filed: 12/06/21 04:12> Review of Systems Review of Systems: Gen: Denies fevers or chills Eyes: Denies eye pain or visual change ENT: Denies congestion Respiratory: Denies shortness of breath or cough CV: Denies chest pain or palpitations GI: Denies abdominal pain nausea, emesis or diarrhea denies burning, urgency, frequency or hematuria Musculoskeletal: Denies back pain or muscle pain Neuro: Denies numbness, tingling, weakness or focal weakness Skin: Reports ulcer. 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
--- NOTE | 2021-12-06 02:26 | PC.NURSE ---
This RN attempted to draw lab work and BC. Unsuccessful. Another RN to try.
--- NOTE | 2021-12-06 02:48 | PC.NURSE ---
blood draw attempted x 1 at this time by this RN. unable to obtain blood labs, phlebotomy called to obtain labs by KRAIG Lorenzo at this time.
--- NOTE | 2021-12-06 02:49 | PC.NURSE ---
Per JEROMY Harris B, pressure wound on pts right heel covered using dry gauze, antibiotic ointment, and alea wrap.
[2021-12-06 03:12] LABS: Erythrocyte Sedimentation Rate 15 mm/hr (0-20)
[2021-12-06 03:30] LABS: Lactic Acid Reflex 4.1 mmol/L (0.7-2.0)
--- NOTE | 2021-12-06 03:33 | PC.NURSE ---
Attempting to obtain blood cultures prior to initiating abx.
[2021-12-06 03:52] LABS: Alanine Aminotransferase 27 U/L (4-50); Albumin Level 3.7 g/dL (3.5-5.1); Alkaline Phosphatase 98 U/L (38-126); Anion Gap 6 mmol/L (8-16); Aspartate Amino Transferase 22 U/L (17-59); Bilirubin,Total 0.4 mg/dL (0.2-1.3); Blood Urea Nitrogen 11 mg/dL (9-20); Calcium 8.5 mg/dL (8.4-10.2); Carbon Dioxide 25 mmol/L (22-30); Chloride 104 mmol/L (98-107); Estimated CRCL calculation 107 ml/min; Estimated Glomerular Filt Rate > 60; Glucose 110 mg/dL (65-110); Potassium 3.6 mmol/L (3.4-5.0); Sodium 135 mmol/L (137-145)
--- NOTE | 2021-12-06 04:40 | PM.IMHP ---
H&P: HPI History of Present Illness Date/Time: 12/06/21 04:40 Chief Complaint: Decubitus ulcers Narrative: This is a 56-year-old male with past medical history significant for transverse myelitis, type 2 diabetes mellitus, paraplegia, wheelchair-bound, decubitus ulcers. Patient was recently admitted and discharged due to worsening decubitus ulcers patient was discharged home with home health care however patient returns today due to purulent discharge from sacral wound area and fever. Patient is unable to give much history. Preliminary workup was significant for a lactic acid of 4.1. In emergency room was noted that there was fecal material contaminating the wound. Patient has been admitted for further evaluation management and treatment. Review of Systems Review of Systems: Worsened decubitus ulcer and fever. Patient is not the best historian. Unable to get much history from him. 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 Peripheral vascular disease Vitamin D deficiency Surgical History Surgical History History of coronary artery bypass graft 2011 History of implantation of penile prosthesis History of spinal surgery Family History Family History Father Epilepsy Social History Social History Smoking status: Never smoker Alcohol intake: never Substance use: never Additional living arrangements comments: Lives at home with his who is his primary caregiver Additional occupation/education comments: Disabled Gender identity (if verbalized by the patient): Male Spiritual care concerns: No Meds Home Medications and Allergies Home Medications Medication Instructions Recorded Confirmed Type dapagliflozin 10 mg tablet 10 mg PO DAILY 07/26/19 12/06/21 History metformin 1,000 mg tablet 1,000 mg PO BID 07/26/19 12/06/21 History metoprolol succinate 50 mg 50 mg PO DAILY 07/26/19 12/06/21 History tablet,extended release 24 hr omeprazole 20 mg tablet,delayed 20 mg PO DAILY 07/26/19 12/06/21 History release tizanidine 4 mg tablet 4 mg PO TID 07/26/19 12/06/21 History albuterol sulfate 90 mcg/actuation 1 inhalation INHALATION Q4-6H PRN 11/12/19 12/06/21 Rx aerosol inhaler 30 Days #42.5 gm Brilinta 90 mg PO QAM 12/02/21 12/06/21 History Bydureon BCise 2 mg SUBCUT WEEKLY 12/02/21 12/06/21 History Levemir FlexTouch U-100 Insuln 5 unit SUBCUT HS 12/02/21 12/06/21 History carvedilol 6.25 mg PO BID 12/02/21 12/06/21 History ezetimibe 10 mg PO DAILY 12/02/21 12/06/21 History fluticasone propionate 2 spray INTRANASAL QAM 12/02/21 12/06/21 History ibuprofen 800 mg PO BID 12/02/21 12/06/21 History insulin aspart U-100 [Novolog 5 unit SUBCUT TID 12/02/21 12/06/21 History Flexpen U-100 Insulin] lubiprostone 24 mcg PO DAILY 12/02/21 12/06/21 History nortriptyline 150 mg PO HS 12/02/21 12/06/21 History rosuvastatin 40 mg PO DAILY 12/02/21 12/06/21 History lanolin evpsdpo-ve-d.pet-ceres 1 applic TOPICAL DAILY 30 Days #1 12/03/21 12/06/21 Rx [Minerin Creme] ea silver [Silver-Sept] 1 applic TOPICAL DAILY 60 Days #1 12/03/21 12/06/21 Rx ea Allergies Allergy/AdvReac Type Severity Reaction Status Date / Time No Known Allergies Allergy Verified 12/05/21 22:51 Vital Signs Vital Signs - 24 hr 12/05/21 22:38 12/06/21 00:22 12/06/21 02:04 Temperature 98.7 F Pulse Rate 91 91 98 Respiratory Rate 25 H 20 25 H Blood Pressure 160/91 H 149/81 H 160/91 H Pulse Oximetry 100 100 100 12/06/21 03:34 12/06/21 03:41 12/06/21
[2021-12-06 04:47] LABS: Glucose Point of Care 140 mg/dl (65-105)
[2021-12-06] MEDS: ACETAMINOPHEN 500 MG TABLET 1000 MG PO (05:50)
[2021-12-06 06:11] LABS: Reflex Lactic Acid Yes or No Add Lactic
[2021-12-06 06:59] LABS: Lactic Acid 1.7 mmol/L (0.7-2.0)
[2021-12-06 08:05] LABS: Glucose Point of Care 220 mg/dl (65-105)
--- NOTE | 2021-12-06 09:54 | PM.CNGS ---
Assessment and Plan Assessment and plan (1) Decubitus ulcer of sacral area: Qualifiers: Pressure injury stage: unspecified pressure injury stage Qualified Code(s): L89.159 - Pressure ulcer of sacral region, unspecified stage Code(s): L89.159 - Pressure ulcer of sacral region, unspecified stage Status: Acute Assessment and Plan: wound examined today and no s/s active infection or drainage, cont local wound care, will have wound care evaluate in am, cont turning and off pressure (2) Osteomyelitis of coccyx: Code(s): M86.9 - Osteomyelitis, unspecified Status: Acute Assessment and Plan: cont abx History of Present Illness Consult details Consult date: 12/06/21 Reason for consult: wound care Requesting physician: Dilma Velez MD Narrative: Pt is a 56 y/o M that has multiple health issues, including transverse myelitis, paraplegia, diabetes presenting with weakness and fevers. The patient has a known sacral decubitus ulcer that has been being treated with local wound care. According to the chart, the patient was recently admitted and discharged with home health for the sacral wound. The patient is a poor historian but reports worsening pain and drainage from the sacral wound. 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 Peripheral vascular disease Vitamin D deficiency Surgical History Surgical History History of coronary artery bypass graft 2011 History of implantation of penile prosthesis History of spinal surgery Family History Family History Father Epilepsy Social History Social History Smoking status: Never smoker Alcohol intake: never Substance use: never Additional living arrangements comments: Lives at home with his who is his primary caregiver Additional occupation/education comments: Disabled Gender identity (if verbalized by the patient): Male Spiritual care concerns: No Meds Home Medications and Allergies Home Medications Medication Instructions Recorded Confirmed Type dapagliflozin 10 mg tablet 10 mg PO DAILY 07/26/19 12/06/21 History metformin 1,000 mg tablet 1,000 mg PO BID 07/26/19 12/06/21 History metoprolol succinate 50 mg 50 mg PO DAILY 07/26/19 12/06/21 History tablet,extended release 24 hr omeprazole 20 mg tablet,delayed 20 mg PO DAILY 07/26/19 12/06/21 History release tizanidine 4 mg tablet 4 mg PO TID 07/26/19 12/06/21 History albuterol sulfate 90 mcg/actuation 1 inhalation INHALATION Q4-6H PRN 11/12/19 12/06/21 Rx aerosol inhaler 30 Days #42.5 gm Brilinta 90 mg PO QAM 12/02/21 12/06/21 History Bydureon BCise 2 mg SUBCUT WEEKLY 12/02/21 12/06/21 History Levemir FlexTouch U-100 Insuln 5 unit SUBCUT 12/02/21 12/06/21 History carvedilol 6.25 mg PO BID 12/02/21 12/06/21 History ezetimibe 10 mg PO DAILY 12/02/21 12/06/21 History fluticasone propionate 2 spray INTRANASAL QA 12/02/21 12/06/21 History ibuprofen 800 mg PO BID 12/02/21 12/06/21 History insulin aspart U-100 [Novolog 5 unit SUBCUT TID 12/02/21 12/06/21 History Flexpen U-100 Insulin] lubiprostone 24 mcg PO DAILY 12/02/21 12/06/21 History nortriptyline 150 mg PO 12/02/21 12/06/21 History rosuvastatin 40 mg PO DAILY 12/02/21 12/06/21 History lanolin zqbjvsw-ja-e.pet-ceres 1 applic TOPICAL D
--- NOTE | 2021-12-06 10:45 | PCOTNOTE ---
Attempted to see pt. fro evaluation. pt being taken for CT scan
--- NOTE | 2021-12-06 11:17 | PM.IMPN ---
Progress Note: A&P Assessment and Plan (1) Osteomyelitis of coccyx: Code(s): M86.9 - Osteomyelitis, unspecified Status: Acute Assessment and Plan: Patient discharged on 12/03 after being Evaluated by surgery, wound care for concern of coccygeal osteomyelitis and for his nonhealing sacral and ischial ulcers. At that time CT abdomen pelvis showed sacral decubitus ulcer with coccygeal osteomyelitis, blood cultures showed no growth, high blood cell count was normal, patient was afebrile, there was no exposed bone, and healthy granulation tissue was present. Surgery advised to discharge with wound care follow-up, daily dressing changes, and return precautions. WBC 11.4 upon admission yesterday. Patient placed on IV vancomycin and Zosyn, will continue. Initial lactate 4.1, with repeat 1.7. Blood and wound cultures have been collected and are pending. Repeat repeat CT abdomen/pelvis Trend infectious markers COntinue IV fluids. General surgery is again consulted, as is wound care, and we do appreciate their recommendations. (2) Decubitus ulcer of sacral area: Qualifiers: Pressure injury stage: unspecified pressure injury stage Qualified Code(s): L89.159 - Pressure ulcer of sacral region, unspecified stage Code(s): L89.159 - Pressure ulcer of sacral region, unspecified stage Status: Acute Assessment and Plan: Plan as above. 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 Patient straight caths at home, Aviles catheter placed during his stay here. Continue to monitor daily intake and output. (4) Coronary artery disease: Code(s): I25.10 - Atherosclerotic heart disease of [place] coronary artery without angina pectoris Status: Acute Assessment and Plan: Past medical history of CABG. No current chest pain, continue Brilinta. (5) DVT prophylaxis: Code(s): Z29.9 - Encounter for prophylactic measures, unspecified Status: Acute Assessment and Plan: SCDs & Heparin (6) Diabetes mellitus: Code(s): E11.9 - Type 2 diabetes mellitus without complications Status: Acute Assessment and Plan: Metformin, Farxiga, is being held Home NovoLog and Levemir continued Low-dose SSI intitiated with accuchecks. Diabetic diet (7) Decubitus ulcer of foot: Qualifiers: Laterality: right Pressure injury stage: unspecified pressure injury stage Qualified Code(s): L89.899 - Pressure ulcer of other site, unspecified stage Code(s): L89.899 - Pressure ulcer of other site, unspecified stage Status: Acute Assessment and Plan: Right foot with heel and plantar ulcers, plantar ulcer has improved since last visit. No evidence of erythema, purulent discharge, fluctuance, tenderness, warmth. Left heel with healed ulcer. Will continue daily dressing changes with Silvadene and dry dressing. Wound Care has been consulted we appreciate their recommendations. waffle boots in placed. (8) Peripheral vascular disease: Code(s): I73.9 - Peripheral vascular disease, unspecified Status: Acute Assessment and Plan: ABIs taken during last visit showed abnormally low bilateral TERE of 0.67 on the right and 0.76 on the left. Abnormal the right TBI 0.53. Referral was made to Dr. Catalan, Vascular Surgery, upon discharge on 12/03. Likely contributing to chronic nonhealing ulcers of both feet. Continue local wound care Subjective Date/time seen: 12/06/21 11:17 56-year-old male with past medical history of transverse myelitis with paraplegia, CAD many years status post CABG, diabetes mellitus, hypertension, peripheral vascular disease who presents to us for concerns over his chronic nonhealing ulcers. Interval history: He denies fevers, chills, nausea,
[2021-12-06] MEDS: HEPARIN SODIUM 5,000 UNITS/ML VIAL 5000 UNITS SUB-Q ×2 (11:19→22:35)
[2021-12-06] MEDS: METOPROLOL SUCCINATE EXT REL 50 MG TABCR PO (11:19)
[2021-12-06] MEDS: INSULIN ASPART (*BKC) 100 UNITS/ML SUB-Q ×2 (11:19)
[2021-12-06] MEDS: PANTOPRAZOLE 40 MG TABLET PO (11:20)
[2021-12-06] MEDS: TICAGRELOR 90 MG TABLET PO (11:20)
[2021-12-06] MEDS: LUBIPROSTONE 24 MCG CAPSULE PO (11:20)
[2021-12-06] MEDS: EUCERIN CREAM 120 GM JAR 1 APPLIC TOPICAL (11:21)
[2021-12-06] MEDS: SILVERGEL (ELTA) 45 ML 1 APPLIC TOPICAL (11:21)
[2021-12-06] MEDS: ROSUVASTATIN 10 MG TABLET 40 MG PO (11:21)
[2021-12-06] MEDS: FLUTICASONE PROPIONATE 0.05% NA SPR 16 GM BTL (*BKC) 2 SPRAY NASAL (11:22)
[2021-12-06 11:51] LABS: Glucose Point of Care 163 mg/dl (65-105)
[2021-12-06 16:40] LABS: Glucose Point of Care 107 mg/dl (65-105)
[2021-12-06 20:33] LABS: Glucose Point of Care 174 mg/dl (65-105)
[2021-12-06] MEDS: INSULIN GLARGINE (*BKC) 100 UNITS/ML SUB-Q (22:36)
[2021-12-06] MEDS: NORTRIPTYLINE HCL 25 MG CAPSULE 150 MG PO (22:36)
[2021-12-07] VITALS (8 sets, daily range): BP systolic 108–110; BP diastolic 64–68; PULSE 70–91; RESP 16–20; TEMP 36.3–36.9; O2SAT 94–100; BMI 28.3
[2021-12-07] MEDS: FLUTICASONE PROPIONATE 0.05% NA SPR 16 GM BTL (*BKC) 2 SPRAY NASAL (05:39)
[2021-12-07 06:18] LABS: Basophils Percent Auto 0.4 % (0.2-1.2); Eosinophils Absolute Auto 0.2 K/mm3 (0-0.3); Eosinophils Percent Auto 3.1 % (0-4.4); Hematocrit 31.4 % (42.0-52.0); Hemoglobin 9.7 g/dL (14.0-18.0); Immature Granulocyte Absolute 0.02 K/mm3 (0.00-0.031); Immature Granulocyte Percent A 0.3 % (0-0.5); Lymphocytes Absolute Auto 1.78 K/mm3 (0.9-3.2); Lymphocytes Percent Auto 24.1 % (18.3-44.2); Mean Corpuscular HGB Conc 30.9 g/dl (32-36); Mean Corpuscular Hemoglobin 26.1 pg (26-34); Mean Corpuscular Volume 84.4 fl (80-100); Mean Platelet Volume 9.1 fl (7.4-10.4); Monocytes Absolute Auto 0.6 K/mm3 (0.1-0.6); Monocytes Percent Auto 8.5 % (2.6-8.5); Neutrophils Absolute Auto 4.7 K/mm3 (1.3-6.7); Neutrophils Percent Auto 63.6 % (45.5-73.1); Platelet Count Result 325 k/mm3 (150-375); Red Blood Count 3.72 M/mm3 (4.6-6.20); Red Cell Distribution Width 14.5 % (11.5-14.5); White Blood Count 7.4 K/mm3 (4.5-10.0)
[2021-12-07 06:36] LABS: Alanine Aminotransferase 28 U/L (4-50); Albumin Level 3.2 g/dL (3.5-5.1); Alkaline Phosphatase 78 U/L (38-126); Anion Gap 4 mmol/L (8-16); Aspartate Amino Transferase 26 U/L (17-59); Bilirubin,Total 0.2 mg/dL (0.2-1.3); Blood Urea Nitrogen 7 mg/dL (9-20); Calcium 8.2 mg/dL (8.4-10.2); Carbon Dioxide 26 mmol/L (22-30); Chloride 105 mmol/L (98-107); Estimated CRCL calculation 94 ml/min; Estimated Glomerular Filt Rate > 60; Glucose 116 mg/dL (65-110); Potassium 3.5 mmol/L (3.4-5.0); Sodium 135 mmol/L (137-145)
[2021-12-07 07:43] LABS: Glucose Point of Care 107 mg/dl (65-105)
[2021-12-07] MEDS: SILVERGEL (ELTA) 45 ML 1 APPLIC TOPICAL (08:58)
[2021-12-07] MEDS: ROSUVASTATIN 10 MG TABLET 40 MG PO (08:59)
[2021-12-07] MEDS: TIZANIDINE HCL 4 MG TABLET PO ×3 (08:59→16:38)
[2021-12-07] MEDS: LUBIPROSTONE 24 MCG CAPSULE PO (08:59)
[2021-12-07] MEDS: PANTOPRAZOLE 40 MG TABLET PO (09:02)
[2021-12-07] MEDS: HEPARIN SODIUM 5,000 UNITS/ML VIAL 5000 UNITS SUB-Q ×2 (09:02→21:48)
[2021-12-07] MEDS: TICAGRELOR 90 MG TABLET PO (09:03)
[2021-12-07] MEDS: METOPROLOL SUCCINATE EXT REL 50 MG TABCR PO (09:03)
[2021-12-07] MEDS: carvediloL 6.25 MG TABLET PO ×2 (09:09→16:38)
[2021-12-07] MEDS: EUCERIN CREAM 120 GM JAR 1 APPLIC TOPICAL (09:10)
[2021-12-07] MEDS: polyethylene glycoL 3350 17 GM POWD.PACK PO (09:20)
[2021-12-07] MEDS: DOCUSATE SODIUM 100 MG CAPSULE PO ×2 (09:20→21:48)
--- NOTE | 2021-12-07 09:37 | PM.PNGS ---
Progress Note: A&P Assessment and Plan (1) Decubitus ulcer of sacral area: Qualifiers: Pressure injury stage: unspecified pressure injury stage Qualified Code(s): L89.159 - Pressure ulcer of sacral region, unspecified stage Code(s): L89.159 - Pressure ulcer of sacral region, unspecified stage Status: Acute Assessment and Plan: imaging reviewed, wound reviewed c wound care nurse and noted to be largely unchanged, no s/s active infection or drainage, cont local wound care Subjective Subjective Date/Time Seen: 12/07/21 09:37 no acute issues overnight, wound reviewed c wound care nurse Review of Systems Review of Systems: ROS unobtainable: Yes unobtainable due to medical condition and unobtainable due to mental status Exam Const: General: cooperative, comfortable and no acute distress Resp: Auscultation: diminished lung sounds Cardio: Rate: regular rate Rhythm: regular rhythm GI: Inspection: normal to inspection GI Palp: Yes Soft to palpation and No Tenderness to palpation present (GI) Skin: Other: stage 3 sacral wound - no s/s active infection or drainage Objective Data Vital Signs Vital Signs: Vital Signs - 24 hr 12/06/21 11:19 12/06/21 14:00 12/06/21 22:00 Temperature 36.4 C L 37.3 C Pulse Rate 81 82 91 Respiratory Rate 16 18 Blood Pressure 119/62 122/77 Pulse Oximetry 100 100 12/07/21 06:00 12/07/21 09:03 12/07/21 09:09 Temperature 36.3 C L Pulse Rate 78 70 70 Respiratory Rate 16 Blood Pressure 110/68 Pulse Oximetry 100 Intake/Output Intake/Output: Intake & Output 12/04/21 12/05/21 12/06/21 12/07/21 23:59 23:59 23:59 23:59 Intake Total 2150 Output Total 1350 1000 Balance 800 -1000 Meds/Results Medications: Active Medications Generic Name Dose Route Start Last Admin Trade Name Freq PRN Reason Stop Dose Admin Albuterol 1 puff 12/06/21 05:17 Albuterol Sulfate (*Sp) Aerosol 1 Puff INHALATION Q4HRT PRN shortness of breath or wheezing Carvedilol 6.25 mg 12/06/21 08:00 12/07/21 09:09 Carvedilol 6.25 Mg Tablet PO 6.25 mg BIDWM TRACY Administration Dextrose 12.5 gm 12/06/21 07:17 Dextrose 50% 25 Gm/50 Ml Syringe IV PUSH PRN PRN Hypoglycemia Protocol Docusate Sodium 100 mg 12/07/21 09:00 12/07/21 09:20 Docusate Sodium 100 Mg Capsule PO 100 mg Q12HR TRACY Administration Fluticasone Propionate 2 spray 12/06/21 09:00 12/07/21 05:39 Fluticasone Propionate 0.05% Na Spr 16 Gm Btl (*Bkc) NASAL 2 spray DAILY@0630 TRACY Administration Glucagon 1 mg 12/06/21 07:17 Glucagon For Inj 1 Mg Vial IM PRN PRN Hypoglycemia Protocol Glucose 15 gm 12/06/21 07:17 Glucose Oral Gel 15 Gm Of Glucse In 37.5 Gm Tube PO PRN PRN Hypoglycemia Protocol Heparin Sodium (Porcine) 5,000 units 12/06/21 09:00 12/07/21 09:02 Heparin Sodium 5,000 Units/Ml Vial SUB-Q 5,000 units Q12HR TRACY Administration Dextrose 1,000 mls @ 100 mls/hr 12/06/21 07:17 Dextrose 5% 1,000 Ml IVPB PRN PRN Hypoglycemia Protocol Insulin Aspart 5 units 12/06/21 08:00 12/07/21 09:21 Insulin Aspart (*Bkc) 100 Units/Ml SUB-Q Not Given TIDWM [facility] Insulin Aspart 2 - 5 units 12/06/21 08:00 12/07/21 09:09 Insulin Aspart (*Bkc) 100 Units/Ml SUB-Q Not Given TIDWM [facility] Protocol Insulin Glargine 5 units 12/06/21 21:00 12/06/21 22:36 Insulin Glargine (*Bkc) 100 Units/Ml SUB-Q 01/05/22 20:59 5 units HS TRACY Administration Lubiprostone 24 mcg 12/06/21 09:00 12/07/21 08:59 Lubiprostone 24 Mcg Capsule PO 24 mcg DAILY TRACY Administration Metoprolol Succinate 50 mg 12/06/21 09:00 12/07/21 09:03 Metoprolol Succinate Ext Rel 50 Mg Tabcr PO 50 mg DAILY TRACY Administration Multi-Ingred Cream/Lotion/Oil/Oint 1 applic 12/06/21 09:00 12/07/21 09:10 Eucerin Cream 120 Gm Jar TOPICAL 1 applic DAILY TRACY Administratio
[2021-12-07 11:29] LABS: Glucose Point of Care 149 mg/dl (65-105)
[2021-12-07] MEDS: TOLNAFTATE 1% POWDER 45 GM BTL 1 APPLIC TOPICAL ×2 (12:14→21:49)
--- NOTE | 2021-12-07 15:22 | PM.IMPN ---
Progress Note: A&P Assessment and Plan (1) Osteomyelitis of coccyx: Code(s): M86.9 - Osteomyelitis, unspecified Status: Acute Assessment and Plan: 12/06 CT abdomen pelvis showed stable sacral decubitus ulcer, and sacrococcygeal osteomyelitis. Blood culture prelim showed Gram-positive cocci in clusters 2nd blood culture showed no growth today Wound culture showed Klebsiella pneumoniae, sensitivities pending WBC 7.4 today (11.4 on admission) VSS Surgery is following advised no s/s active infection or drainage, cont local wound care. Will follow for recommendations for termite technician antibiotic treatment. Zosyn stopped Continue Vancomycin/start ceftriaxone AM labs Continue daily wound care Q2 hr repositioning. Trend infectious markers (2) Decubitus ulcer of sacral area: Qualifiers: Pressure injury stage: unspecified pressure injury stage Qualified Code(s): L89.159 - Pressure ulcer of sacral region, unspecified stage Code(s): L89.159 - Pressure ulcer of sacral region, unspecified stage Status: Acute Assessment and Plan: Plan as above. 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 Patient straight caths at home, Aviels catheter placed during his stay here. Continue to monitor daily intake and output. (4) Coronary artery disease: Code(s): I25.10 - Atherosclerotic heart disease of [place] coronary artery without angina pectoris Status: Acute Assessment and Plan: Past medical history of CABG. No current chest pain, continue Brilinta. (5) DVT prophylaxis: Code(s): Z29.9 - Encounter for prophylactic measures, unspecified Status: Acute Assessment and Plan: SCDs & Heparin (6) Diabetes mellitus: Code(s): E11.9 - Type 2 diabetes mellitus without complications Status: Acute Assessment and Plan: Metformin, Farxiga, is being held Home NovoLog and Levemir continued Low-dose SSI intitiated with accuchecks. Diabetic diet (7) Decubitus ulcer of foot: Qualifiers: Laterality: right Pressure injury stage: unspecified pressure injury stage Qualified Code(s): L89.899 - Pressure ulcer of other site, unspecified stage Code(s): L89.899 - Pressure ulcer of other site, unspecified stage Status: Acute Assessment and Plan: Right foot with heel and plantar ulcers, plantar ulcer has improved since last visit. No evidence of erythema, purulent discharge, fluctuance, tenderness, warmth. Left heel with healed ulcer. Will continue daily dressing changes with Silvadene and dry dressing. waffle boots in placed. (8) Peripheral vascular disease: Code(s): I73.9 - Peripheral vascular disease, unspecified Status: Acute Assessment and Plan: ABIs taken during last visit showed abnormally low bilateral TERE of 0.67 on the right and 0.76 on the left. Abnormal the right TBI 0.53. Referral was made to Dr. Catalan, Vascular Surgery, upon discharge on 12/03. Likely contributing to chronic nonhealing ulcers of both feet. Continue local wound care Additional Plan Patient discharged on 12/03 after being Evaluated by surgery, wound care for concern of coccygeal osteomyelitis and for his nonhealing sacral and ischial ulcers. At that time CT abdomen pelvis showed sacral decubitus ulcer with coccygeal osteomyelitis, blood cultures showed no growth, high blood cell count was normal, patient was afebrile, there was no exposed bone, and healthy granulation tissue was present. Surgery advised to discharge with wound care follow-up, daily dressing changes, and return precautions. Subjective Date/time seen: 12/07/21 15:22 Interval history: 56-year-old male with history of transverse myelitis and paraplegia, chronic decubitus ulcer
[2021-12-07] MEDS: cefTRIAXone 2 GM in SODIUM CHLORIDE 0.9% IV 100 ML 200 ML IVPB (16:23)
[2021-12-07 16:31] LABS: Glucose Point of Care 228 mg/dl (65-105)
[2021-12-07] MEDS: INSULIN ASPART (*BKC) 100 UNITS/ML SUB-Q (16:38)
[2021-12-07] MEDS: NORTRIPTYLINE HCL 25 MG CAPSULE 150 MG PO (21:49)
[2021-12-07 22:33] LABS: Glucose Point of Care 145 mg/dl (65-105)
[2021-12-08] MEDS: FLUTICASONE PROPIONATE 0.05% NA SPR 16 GM BTL (*BKC) 2 SPRAY NASAL (05:32)
[2021-12-08 06:00] VITALS: BP 103/58; PULSE 73; RESP 18; TEMP 36.3; O2SAT 100
[2021-12-08 06:16] LABS: Basophils Absolute Auto 0.1 K/mm3 (0.0-0.1); Basophils Percent Auto 0.6 % (0.2-1.2); Eosinophils Absolute Auto 0.2 K/mm3 (0-0.3); Eosinophils Percent Auto 2.3 % (0-4.4); Hematocrit 31.7 % (42.0-52.0); Hemoglobin 10.1 g/dL (14.0-18.0); Immature Granulocyte Absolute 0.03 K/mm3 (0.00-0.031); Immature Granulocyte Percent A 0.4 % (0-0.5); Lymphocytes Absolute Auto 1.75 K/mm3 (0.9-3.2); Lymphocytes Percent Auto 20.5 % (18.3-44.2); Mean Corpuscular HGB Conc 31.9 g/dl (32-36); Mean Corpuscular Hemoglobin 26.6 pg (26-34); Mean Corpuscular Volume 83.4 fl (80-100); Monocytes Absolute Auto 0.7 K/mm3 (0.1-0.6); Monocytes Percent Auto 7.6 % (2.6-8.5); Neutrophils Absolute Auto 5.9 K/mm3 (1.3-6.7); Neutrophils Percent Auto 68.6 % (45.5-73.1); Platelet Count Result 347 k/mm3 (150-375); Red Cell Distribution Width 14.2 % (11.5-14.5); White Blood Count 8.5 K/mm3 (4.5-10.0)
[2021-12-08 06:18] LABS: Alanine Aminotransferase 64 U/L (4-50); Albumin Level 3.1 g/dL (3.5-5.1); Alkaline Phosphatase 79 U/L (38-126); Anion Gap 4 mmol/L (8-16); Aspartate Amino Transferase 53 U/L (17-59); Bilirubin,Total < 0.1 mg/dL (0.2-1.3); Blood Urea Nitrogen 11 mg/dL (9-20); Calcium 8.4 mg/dL (8.4-10.2); Carbon Dioxide 29 mmol/L (22-30); Chloride 104 mmol/L (98-107); Estimated CRCL calculation 94 ml/min; Estimated Glomerular Filt Rate > 60; Glucose 124 mg/dL (65-110); Sodium 137 mmol/L (137-145)
[2021-12-08 07:31] LABS: Glucose Point of Care 140 mg/dl (65-105)
[2021-12-08 08:00] VITALS: PULSE 85; RESP 20; O2SAT 100
[2021-12-08 08:05] VITALS: O2SAT 95
--- NOTE | 2021-12-08 08:06 | PM.IMPN ---
Progress Note: A&P Assessment and Plan (1) Osteomyelitis of coccyx: Code(s): M86.9 - Osteomyelitis, unspecified Status: Acute Assessment and Plan: 12/06 CT abdomen pelvis showed stable sacral decubitus ulcer, and sacrococcygeal osteomyelitis. Blood cultures showed staph hominis and epidermis. Possibly contamination, will repeat cultures. Wound culture w/ Klebsiella pneumoniae, sensitive to cefepime, ceftriaxone; and staph aureus (pending sensitivities) WBC 8.5 today (11.4 on admission) VSS Surgery advised 6 weeks of outpatient vancomycin/cefepime after discharge for osteomyelitis. Continue Vancomycin/transition from ceftriaxone to cefepime AM labs PICC line placement. Repeat blood cultures Continue daily wound care Q2 hr repositioning. Trend infectious markers (2) Decubitus ulcer of sacral area: Qualifiers: Pressure injury stage: unspecified pressure injury stage Qualified Code(s): L89.159 - Pressure ulcer of sacral region, unspecified stage Code(s): L89.159 - Pressure ulcer of sacral region, unspecified stage Status: Acute Assessment and Plan: Plan as above. 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 Patient straight caths at home, Aviles catheter placed during his stay here. Patient had fecal impaction upon admission. Miralax & colace given, patient is stooling. Plan as above for wound care. Aviles care. Continue Miralax/ colace. (4) Coronary artery disease: Code(s): I25.10 - Atherosclerotic heart disease of [place] coronary artery without angina pectoris Status: Acute Assessment and Plan: Past medical history of CABG. No current chest pain, continue Brilinta. Continue to monitor (5) DVT prophylaxis: Code(s): Z29.9 - Encounter for prophylactic measures, unspecified Status: Acute Assessment and Plan: Heparin sq/Q 12. (6) Diabetes mellitus: Code(s): E11.9 - Type 2 diabetes mellitus without complications Status: Acute Assessment and Plan: Metformin, Farxiga, is being held Home NovoLog and Levemir being held due to patient's sugars around 100 pre-prandial. Low-dose SSI intitiated with accuchecks. Diabetic diet (7) Decubitus ulcer of foot: Qualifiers: Laterality: right Pressure injury stage: unspecified pressure injury stage Qualified Code(s): L89.899 - Pressure ulcer of other site, unspecified stage Code(s): L89.899 - Pressure ulcer of other site, unspecified stage Status: Acute Assessment and Plan: Left heel with healed ulcer. Will continue daily dressing changes with Silvadene and dry dressing. waffle boots in place. (8) Peripheral vascular disease: Code(s): I73.9 - Peripheral vascular disease, unspecified Status: Acute Assessment and Plan: ABIs taken during last visit showed abnormally low bilateral TERE of 0.67 on the right and 0.76 on the left. Abnormal the right TBI 0.53. Referral was made to Dr. Catalan, Vascular Surgery, upon discharge on 12/03. Likely contributing to chronic nonhealing ulcers of both feet. Continue local wound care. F/U with vascular outpatient. (9) Hypertension: Code(s): I10 - Essential (primary) hypertension Status: Acute Assessment and Plan: Patient normotensive Continue home carvedilol 6.25 BID. Additional Plan Discussed SCDs vs heparin discussed with patient who agrees to stay with heparin at this time. Patient was upset PT did not come to provide him therapy yesterday. This is of high importance to him, as he wishes to maintain his upper body strenght. Care coordination pending placement with [facility], though patient now states he does not wish to go to this facility. Patient discharged on 12/03
[2021-12-08] MEDS: ROSUVASTATIN 10 MG TABLET 40 MG PO (09:20)
[2021-12-08] MEDS: HEPARIN SODIUM 5,000 UNITS/ML VIAL 5000 UNITS SUB-Q ×2 (09:20→21:13)
[2021-12-08] MEDS: TOLNAFTATE 1% POWDER 45 GM BTL 1 APPLIC TOPICAL ×2 (09:21→22:16)
[2021-12-08] MEDS: polyethylene glycoL 3350 17 GM POWD.PACK PO (09:21)
[2021-12-08] MEDS: SILVERGEL (ELTA) 45 ML 1 APPLIC TOPICAL (09:21)
[2021-12-08] MEDS: METOPROLOL SUCCINATE EXT REL 50 MG TABCR PO (09:21)
[2021-12-08] MEDS: TICAGRELOR 90 MG TABLET PO (09:21)
[2021-12-08] MEDS: LUBIPROSTONE 24 MCG CAPSULE PO (09:21)
[2021-12-08] MEDS: PANTOPRAZOLE 40 MG TABLET PO (09:21)
[2021-12-08] MEDS: DOCUSATE SODIUM 100 MG CAPSULE PO ×2 (09:21→22:13)
[2021-12-08] MEDS: TIZANIDINE HCL 4 MG TABLET PO ×3 (09:21→17:38)
[2021-12-08] MEDS: EUCERIN CREAM 120 GM JAR 1 APPLIC TOPICAL (09:22)
--- NOTE | 2021-12-08 13:53 | PM.PNGS ---
Progress Note: A&P Assessment and Plan (1) Decubitus ulcer of sacral area: Qualifiers: Pressure injury stage: unspecified pressure injury stage Qualified Code(s): L89.159 - Pressure ulcer of sacral region, unspecified stage Code(s): L89.159 - Pressure ulcer of sacral region, unspecified stage Status: Acute Assessment and Plan: no active infection, cont local wound care, no acute surgical issues, will s/o, call c ?s, issues (2) Osteomyelitis: Qualifiers: Osteomyelitis location: unspecified site Osteomyelitis type: unspecified type Qualified Code(s): M86.9 - Osteomyelitis, unspecified Code(s): M86.9 - Osteomyelitis, unspecified Status: Acute Assessment and Plan: will need IV abx x 6 wks, PICC Subjective Subjective Date/Time Seen: 12/08/21 13:53 no acute issues overnight, no c/o Review of Systems Review of Systems: All systems reviewed & are unremarkable except as noted in HPI and below Exam Const: General: cooperative and no acute distress Resp: Auscultation: clear to auscultation bilaterally Cardio: Rate: regular rate Rhythm: regular rhythm GI: Inspection: normal to inspection GI Palp: Yes Soft to palpation and No Tenderness to palpation present (GI) Skin: Other: stage 3 sacral ulcer - no active infection, drainage Objective Data Vital Signs Vital Signs: Vital Signs - 24 hr 12/07/21 14:00 12/07/21 16:38 12/07/21 20:10 Temperature 36.9 C Pulse Rate 91 88 Respiratory Rate 20 Blood Pressure Pulse Oximetry 99 94 12/07/21 21:32 12/07/21 22:00 12/08/21 06:00 Temperature 36.3 C L 36.3 C L 36.3 C L Pulse Rate 90 90 73 Respiratory Rate 16 16 18 Blood Pressure 108/64 108/64 103/58 L Pulse Oximetry 100 100 100 12/08/21 08:05 Temperature Pulse Rate Respiratory Rate Blood Pressure Pulse Oximetry 95 Intake/Output Intake/Output: Intake & Output 12/05/21 12/06/21 12/07/21 12/08/21 23:59 23:59 23:59 23:59 Intake Total 2150 1000 120 Output Total 1350 2150 500 Balance 800 1150 -380 Meds/Results Medications: Active Medications Generic Name Dose Route Start Last Admin Trade Name Freq PRN Reason Stop Dose Admin Albuterol 1 puff 12/06/21 05:17 Albuterol Sulfate (*Sp) Aerosol 1 Puff INHALATION Q4HRT PRN shortness of breath or wheezing Carvedilol 6.25 mg 12/06/21 08:00 12/08/21 09:25 Carvedilol 6.25 Mg Tablet PO Not Given BIDWM TRACY Dextrose 12.5 gm 12/06/21 07:17 Dextrose 50% 25 Gm/50 Ml Syringe IV PUSH PRN PRN Hypoglycemia Protocol Docusate Sodium 100 mg 12/07/21 09:00 12/08/21 09:21 Docusate Sodium 100 Mg Capsule PO 100 mg Q12HR TRACY Administration Fluticasone Propionate 2 spray 12/06/21 09:00 12/08/21 05:32 Fluticasone Propionate 0.05% Na Spr 16 Gm Btl (*Bkc) NASAL 2 spray DAILY@0630 TRACY Administration Glucagon 1 mg 12/06/21 07:17 Glucagon For Inj 1 Mg Vial IM PRN PRN Hypoglycemia Protocol Glucose 15 gm 12/06/21 07:17 Glucose Oral Gel 15 Gm Of Glucse In 37.5 Gm Tube PO PRN PRN Hypoglycemia Protocol Heparin Sodium (Porcine) 5,000 units 12/06/21 09:00 12/08/21 09:20 Heparin Sodium 5,000 Units/Ml Vial SUB-Q 5,000 units Q12HR TRACY Administration Dextrose 1,000 mls @ 100 mls/hr 12/06/21 07:17 Dextrose 5% 1,000 Ml IVPB PRN PRN Hypoglycemia Protocol Ceftriaxone Sodium/Dextrose 1 gm in 50 mls @ 100 mls/hr 12/08/21 14:00 Rocephin 1 Gm/D5w 50 Ml IVPB Q24H TRACY Vancomycin HCl 1,500 mg in 500 mls @ 333.333 mls/hr 12/07/21 16:00 12/08/21 05:31 Vancomycin 1,500 Mg/D5w 500 Ml IVPB 333.33 mls/hr Q12H TRACY Administration Insulin Aspart 5 units 12/06/21 08:00 12/07/21 12:20 Insulin Aspart (*Bkc) 100 Units/Ml SUB-Q Not Given TIDWM [facility] Insulin Aspart 2 - 5 units 12/06/21 08:00 12/08/21 11:28 Insulin Aspart (*Bkc) 100 Units/Ml SUB-Q Not G
[2021-12-08 14:00] VITALS: BP 118/72; PULSE 85; RESP 20; TEMP 36.5; O2SAT 100
[2021-12-08 16:21] LABS: Glucose Point of Care 177 mg/dl (65-105)
[2021-12-08] MEDS: carvediloL 6.25 MG TABLET PO (17:38)
[2021-12-08 19:50] LABS: Glucose Point of Care 157 mg/dl (65-105)
[2021-12-08 20:00] VITALS: PULSE 90; RESP 18; O2SAT 100
[2021-12-08 20:17] LABS: Glucose Point of Care 179 mg/dl (65-105)
[2021-12-08 22:00] VITALS: BP 120/66; PULSE 90; RESP 18; TEMP 37.3; O2SAT 100
[2021-12-08] MEDS: NORTRIPTYLINE HCL 25 MG CAPSULE 150 MG PO (22:14)
[2021-12-09] VITALS (7 sets, daily range): BP systolic 119–127; BP diastolic 66–73; PULSE 85–92; RESP 18–26; TEMP 36.7–37.2; O2SAT 95–100
[2021-12-09 03:36] LABS: Basophils Absolute Auto 0.1 K/mm3 (0.0-0.1); Basophils Percent Auto 0.7 % (0.2-1.2); Eosinophils Absolute Auto 0.2 K/mm3 (0-0.3); Eosinophils Percent Auto 2.2 % (0-4.4); Hematocrit 33.2 % (42.0-52.0); Hemoglobin 10.1 g/dL (14.0-18.0); Immature Granulocyte Absolute 0.03 K/mm3 (0.00-0.031); Immature Granulocyte Percent A 0.3 % (0-0.5); Lymphocytes Absolute Auto 1.67 K/mm3 (0.9-3.2); Lymphocytes Percent Auto 19.5 % (18.3-44.2); Mean Corpuscular HGB Conc 30.4 g/dl (32-36); Mean Corpuscular Volume 85.6 fl (80-100); Mean Platelet Volume 9.1 fl (7.4-10.4); Monocytes Absolute Auto 0.7 K/mm3 (0.1-0.6); Monocytes Percent Auto 7.6 % (2.6-8.5); Neutrophils Percent Auto 69.7 % (45.5-73.1); Platelet Count Result 375 k/mm3 (150-375); Red Blood Count 3.88 M/mm3 (4.6-6.20); Red Cell Distribution Width 14.3 % (11.5-14.5); White Blood Count 8.6 K/mm3 (4.5-10.0)
[2021-12-09 03:52] LABS: Alanine Aminotransferase 70 U/L (4-50); Albumin Level 3.3 g/dL (3.5-5.1); Alkaline Phosphatase 79 U/L (38-126); Anion Gap 5 mmol/L (8-16); Aspartate Amino Transferase 47 U/L (17-59); Bilirubin,Total 0.2 mg/dL (0.2-1.3); Blood Urea Nitrogen 14 mg/dL (9-20); Calcium 8.3 mg/dL (8.4-10.2); Carbon Dioxide 27 mmol/L (22-30); Chloride 104 mmol/L (98-107); Estimated CRCL calculation 94 ml/min; Estimated Glomerular Filt Rate > 60; Glucose 119 mg/dL (65-110); Sodium 136 mmol/L (137-145)
[2021-12-09 04:00] LABS: Vancomycin Trough 12.9 ug/mL (10.0-20.0)
[2021-12-09 04:22] LABS: SARS-CoV-2 RNA PCR Negative
[2021-12-09] MEDS: FLUTICASONE PROPIONATE 0.05% NA SPR 16 GM BTL (*BKC) 2 SPRAY NASAL (05:31)
[2021-12-09 07:30] LABS: Glucose Point of Care 131 mg/dl (65-105)
[2021-12-09] MEDS: ROSUVASTATIN 10 MG TABLET 40 MG PO (10:24)
[2021-12-09] MEDS: PANTOPRAZOLE 40 MG TABLET PO (10:25)
[2021-12-09] MEDS: TICAGRELOR 90 MG TABLET PO (10:25)
[2021-12-09] MEDS: LUBIPROSTONE 24 MCG CAPSULE PO (10:25)
[2021-12-09] MEDS: HEPARIN SODIUM 5,000 UNITS/ML VIAL 5000 UNITS SUB-Q ×2 (10:26→21:04)
[2021-12-09] MEDS: DOCUSATE SODIUM 100 MG CAPSULE PO ×2 (10:26→21:02)
[2021-12-09] MEDS: EUCERIN CREAM 120 GM JAR 1 APPLIC TOPICAL (10:27)
[2021-12-09] MEDS: TOLNAFTATE 1% POWDER 45 GM BTL 1 APPLIC TOPICAL ×2 (10:27→21:04)
[2021-12-09] MEDS: polyethylene glycoL 3350 17 GM POWD.PACK PO (10:27)
[2021-12-09] MEDS: SILVERGEL (ELTA) 45 ML 1 APPLIC TOPICAL (10:27)
[2021-12-09 11:07] LABS: Glucose Point of Care 133 mg/dl (65-105)
--- NOTE | 2021-12-09 14:22 | PC.NURSE ---
On 12/09/21, the student, Brandi Farnsworth, provided care and completed [facility] documentation on this patient. I have reviewed the student's documentation and agree with the findings.
[2021-12-09] MEDS: LIDOCAINE HCL 1% PF INJ 5 ML VIAL INFILTRATE (14:40)
--- NOTE | 2021-12-09 14:42 | PM.IMPN ---
Progress Note: A&P Assessment and Plan (1) Osteomyelitis of coccyx: Code(s): M86.9 - Osteomyelitis, unspecified Status: Acute Assessment and Plan: 12/06 CT abdomen pelvis showed stable sacral decubitus ulcer, and sacrococcygeal osteomyelitis. Blood cultures showed staph hominis and epidermis. Likely contamination, will repeat cultures. Wound culture w/ Klebsiella pneumoniae, sensitive to cefepime, ceftriaxone; and staph aureus (pending sensitivities) WBC 8.6 today (11.4 on admission) VSS Surgery advised 6 weeks of outpatient vancomycin/cefepime after discharge for osteomyelitis regardless of the repeat BC results. Continue Vancomycin/transition from ceftriaxone to cefepime AM labs PICC line placement today Repeat blood cultures pending Continue daily wound care Q2 hr repositioning. Trend infectious markers (2) Decubitus ulcer of sacral area: Qualifiers: Pressure injury stage: unspecified pressure injury stage Qualified Code(s): L89.159 - Pressure ulcer of sacral region, unspecified stage Code(s): L89.159 - Pressure ulcer of sacral region, unspecified stage Status: Acute Assessment and Plan: Plan as above. 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 Patient straight caths at home, Aviles catheter placed during his stay here. Patient had fecal impaction upon admission. Miralax & colace given, patient is stooling. Plan as above for wound care. Aviles care. Continue Miralax/ colace. (4) Coronary artery disease: Code(s): I25.10 - Atherosclerotic heart disease of [place] coronary artery without angina pectoris Status: Acute Assessment and Plan: Past medical history of CABG. No current chest pain, continue Brilinta. Continue to monitor (5) DVT prophylaxis: Code(s): Z29.9 - Encounter for prophylactic measures, unspecified Status: Acute Assessment and Plan: Heparin sq/Q 12. (6) Diabetes mellitus: Code(s): E11.9 - Type 2 diabetes mellitus without complications Status: Acute Assessment and Plan: Metformin, Farxiga, is being held Home NovoLog and Levemir being held due to patient's sugars around 100 pre-prandial. Low-dose SSI intitiated with accuchecks. Diabetic diet (7) Decubitus ulcer of foot: Qualifiers: Laterality: right Pressure injury stage: unspecified pressure injury stage Qualified Code(s): L89.899 - Pressure ulcer of other site, unspecified stage Code(s): L89.899 - Pressure ulcer of other site, unspecified stage Status: Acute Assessment and Plan: Left heel with healed ulcer. Will continue daily dressing changes with Silvadene and dry dressing. waffle boots in place. (8) Peripheral vascular disease: Code(s): I73.9 - Peripheral vascular disease, unspecified Status: Acute Assessment and Plan: ABIs taken during last visit showed abnormally low bilateral TERE of 0.67 on the right and 0.76 on the left. Abnormal the right TBI 0.53. Referral was made to Dr. Catalan, Vascular Surgery, upon discharge on 12/03. Likely contributing to chronic nonhealing ulcers of both feet. Continue local wound care. F/U with vascular outpatient. (9) Hypertension: Code(s): I10 - Essential (primary) hypertension Status: Acute Assessment and Plan: Patient normotensive Continue home carvedilol 6.25 BID. Subjective Date/time seen: 12/09/21 14:42 Interval history: 56-year-old male with history of transverse myelitis and paraplegia, chronic decubitus ulcers, peripheral vascular disease, diabetes mellitus, who presents for bleeding at one of his ulcers. Patient is comfortable today, continues to be afebrile, no fevers chills, nausea, vomiting, chest pain, shortness a br
[2021-12-09 16:22] LABS: Glucose Point of Care 187 mg/dl (65-105)
[2021-12-09 19:56] LABS: Glucose Point of Care 164 mg/dl (65-105)
[2021-12-09] MEDS: NORTRIPTYLINE HCL 25 MG CAPSULE 150 MG PO (21:01)
[2021-12-09] MEDS: CENTRAL LINE FLUSH 10 ML IV PUSH (21:06)
[2021-12-10] VITALS (7 sets, daily range): BP systolic 120–129; BP diastolic 74–84; PULSE 78–94; RESP 18–20; TEMP 36.7–36.8; O2SAT 98–100
[2021-12-10 07:00] LABS: Estimated CRCL calculation 94 ml/min; Estimated Glomerular Filt Rate > 60
[2021-12-10] MEDS: BISACODYL 10 MG SUPPOSITORY RECTAL (07:50)
[2021-12-10] MEDS: CENTRAL LINE FLUSH 10 ML IV PUSH ×3 (07:50→21:06)
[2021-12-10] MEDS: FLUTICASONE PROPIONATE 0.05% NA SPR 16 GM BTL (*BKC) 2 SPRAY NASAL (07:51)
[2021-12-10 07:57] LABS: Glucose Point of Care 114 mg/dl (65-105)
--- NOTE | 2021-12-10 09:23 | PM.IMPN ---
Progress Note: A&P Assessment and Plan (1) Osteomyelitis of coccyx: Code(s): M86.9 - Osteomyelitis, unspecified Status: Acute Assessment and Plan: 12/06 CT abdomen pelvis showed stable sacral decubitus ulcer, and sacrococcygeal osteomyelitis. Blood cultures showed staph hominis and epidermis. Likely contamination, will repeat cultures. Wound culture w/ Klebsiella pneumoniae, sensitive to cefepime, ceftriaxone; and staph aureus (pending sensitivities) WBC 8.6 today (11.4 on admission) VSS Surgery advised 6 weeks of outpatient vancomycin/cefepime after discharge for osteomyelitis regardless of the repeat BC results. Continue Vancomycin/transition from ceftriaxone to cefepime PICC line placed successfully yesterday Repeat blood cultures NGTD, will monitor for one more day, if negative after 72 hours will discharge back to care home Continue daily wound care Q2 hr repositioning. (2) Decubitus ulcer of sacral area: Qualifiers: Pressure injury stage: unspecified pressure injury stage Qualified Code(s): L89.159 - Pressure ulcer of sacral region, unspecified stage Code(s): L89.159 - Pressure ulcer of sacral region, unspecified stage Status: Acute Assessment and Plan: Plan as above. 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 Patient straight caths at home, Aviles catheter placed during his stay here. Patient had fecal impaction upon admission. Miralax & colace given, patient is stooling. Plan as above for wound care. Aviles care. Continue Miralax/ colace. (4) Coronary artery disease: Code(s): I25.10 - Atherosclerotic heart disease of [place] coronary artery without angina pectoris Status: Acute Assessment and Plan: Past medical history of CABG. No current chest pain, continue Brilinta. Continue to monitor (5) DVT prophylaxis: Code(s): Z29.9 - Encounter for prophylactic measures, unspecified Status: Acute Assessment and Plan: Heparin sq/Q 12. (6) Diabetes mellitus: Code(s): E11.9 - Type 2 diabetes mellitus without complications Status: Acute Assessment and Plan: Metformin, Farxiga, is being held Home NovoLog and Levemir being held due to patient's sugars around 100 pre-prandial. Low-dose SSI intitiated with accuchecks. Diabetic diet (7) Decubitus ulcer of foot: Qualifiers: Laterality: right Pressure injury stage: unspecified pressure injury stage Qualified Code(s): L89.899 - Pressure ulcer of other site, unspecified stage Code(s): L89.899 - Pressure ulcer of other site, unspecified stage Status: Acute Assessment and Plan: Left heel with healed ulcer. Will continue daily dressing changes with Silvadene and dry dressing. waffle boots in place. (8) Peripheral vascular disease: Code(s): I73.9 - Peripheral vascular disease, unspecified Status: Acute Assessment and Plan: ABIs taken during last visit showed abnormally low bilateral TERE of 0.67 on the right and 0.76 on the left. Abnormal the right TBI 0.53. Referral was made to Dr. Catalan, Vascular Surgery, upon discharge on 12/03. Likely contributing to chronic nonhealing ulcers of both feet. Continue local wound care. F/U with vascular outpatient. (9) Hypertension: Code(s): I10 - Essential (primary) hypertension Status: Acute Assessment and Plan: Patient normotensive Continue home carvedilol 6.25 BID. Subjective Date/time seen: 12/10/21 09:23 Interval history: 56-year-old male with history of transverse myelitis and paraplegia, chronic decubitus ulcers, peripheral vascular disease, diabetes mellitus, who presents for bleeding at one of his ulcers. Patient is comfortable today, continues to be a
[2021-12-10] MEDS: polyethylene glycoL 3350 17 GM POWD.PACK PO (09:46)
[2021-12-10] MEDS: PANTOPRAZOLE 40 MG TABLET PO (09:50)
[2021-12-10] MEDS: ROSUVASTATIN 10 MG TABLET 40 MG PO (09:50)
[2021-12-10] MEDS: DOCUSATE SODIUM 100 MG CAPSULE PO ×2 (09:50→21:05)
[2021-12-10] MEDS: carvediloL 6.25 MG TABLET PO ×2 (09:50→17:43)
[2021-12-10] MEDS: TICAGRELOR 90 MG TABLET PO (09:51)
[2021-12-10] MEDS: SILVERGEL (ELTA) 45 ML 1 APPLIC TOPICAL (09:51)
[2021-12-10] MEDS: HEPARIN SODIUM 5,000 UNITS/ML VIAL 5000 UNITS SUB-Q ×2 (09:51→21:06)
[2021-12-10] MEDS: METOPROLOL SUCCINATE EXT REL 50 MG TABCR PO (09:51)
[2021-12-10] MEDS: LUBIPROSTONE 24 MCG CAPSULE PO (09:51)
[2021-12-10] MEDS: TIZANIDINE HCL 4 MG TABLET PO ×3 (09:51→17:43)
[2021-12-10] MEDS: TOLNAFTATE 1% POWDER 45 GM BTL 1 APPLIC TOPICAL ×2 (09:52→21:07)
[2021-12-10] MEDS: EUCERIN CREAM 120 GM JAR 1 APPLIC TOPICAL (09:52)
[2021-12-10 11:48] LABS: Glucose Point of Care 197 mg/dl (65-105)
[2021-12-10 14:30] LABS: Anion Gap 7 mmol/L (8-16); Blood Urea Nitrogen 13 mg/dL (9-20); Calcium 9.1 mg/dL (8.4-10.2); Carbon Dioxide 26 mmol/L (22-30); Chloride 107 mmol/L (98-107); Glucose 138 mg/dL (65-110); Sodium 140 mmol/L (137-145)
[2021-12-10 16:19] LABS: Estimated CRCL calculation 85 ml/min; Estimated Glomerular Filt Rate > 60
[2021-12-10 16:50] LABS: Glucose Point of Care 241 mg/dl (65-105)
[2021-12-10] MEDS: INSULIN ASPART (*BKC) 100 UNITS/ML SUB-Q (17:40)
[2021-12-10] MEDS: ALBUTEROL SULFATE (*SP) AEROSOL 1 PUFF INHALATION (19:48)
[2021-12-10] MEDS: NORTRIPTYLINE HCL 25 MG CAPSULE 150 MG PO (21:05)
[2021-12-11] MEDS: FLUTICASONE PROPIONATE 0.05% NA SPR 16 GM BTL (*BKC) 2 SPRAY NASAL (05:56)
[2021-12-11 06:00] VITALS: BP 115/70; PULSE 78; RESP 18; TEMP 36.7; O2SAT 98
[2021-12-11 06:01] LABS: Basophils Absolute Auto 0.1 K/mm3 (0.0-0.1); Basophils Percent Auto 0.7 % (0.2-1.2); Eosinophils Absolute Auto 0.4 K/mm3 (0-0.3); Eosinophils Percent Auto 4.5 % (0-4.4); Hematocrit 32.1 % (42.0-52.0); Hemoglobin 9.9 g/dL (14.0-18.0); Immature Granulocyte Absolute 0.04 K/mm3 (0.00-0.031); Immature Granulocyte Percent A 0.5 % (0-0.5); Lymphocytes Absolute Auto 1.87 K/mm3 (0.9-3.2); Lymphocytes Percent Auto 21.8 % (18.3-44.2); Mean Corpuscular HGB Conc 30.8 g/dl (32-36); Mean Corpuscular Hemoglobin 26.3 pg (26-34); Mean Corpuscular Volume 85.4 fl (80-100); Mean Platelet Volume 8.9 fl (7.4-10.4); Monocytes Absolute Auto 0.6 K/mm3 (0.1-0.6); Monocytes Percent Auto 7.1 % (2.6-8.5); Neutrophils Absolute Auto 5.6 K/mm3 (1.3-6.7); Neutrophils Percent Auto 65.4 % (45.5-73.1); Platelet Count Result 364 k/mm3 (150-375); Red Blood Count 3.76 M/mm3 (4.6-6.20); Red Cell Distribution Width 14.2 % (11.5-14.5); White Blood Count 8.6 K/mm3 (4.5-10.0)
[2021-12-11] MEDS: CENTRAL LINE FLUSH 10 ML IV PUSH ×2 (06:03→20:48)
[2021-12-11 06:10] LABS: Anion Gap 3 mmol/L (8-16); Blood Urea Nitrogen 15 mg/dL (9-20); Calcium 8.6 mg/dL (8.4-10.2); Carbon Dioxide 30 mmol/L (22-30); Chloride 102 mmol/L (98-107); Estimated CRCL calculation 107 ml/min; Estimated Glomerular Filt Rate > 60; Glucose 168 mg/dL (65-110); Potassium 4.8 mmol/L (3.4-5.0); Sodium 135 mmol/L (137-145)
[2021-12-11 08:00] VITALS: PULSE 78; RESP 18; O2SAT 98
[2021-12-11 08:50] LABS: Glucose Point of Care 155 mg/dl (65-105)
[2021-12-11] MEDS: DOCUSATE SODIUM 100 MG CAPSULE PO ×3 (09:40→20:47)
[2021-12-11] MEDS: PANTOPRAZOLE 40 MG TABLET PO (09:40)
[2021-12-11] MEDS: HEPARIN SODIUM 5,000 UNITS/ML VIAL 5000 UNITS SUB-Q ×2 (09:41→20:47)
[2021-12-11] MEDS: TICAGRELOR 90 MG TABLET PO (09:41)
[2021-12-11] MEDS: carvediloL 6.25 MG TABLET PO ×2 (09:41→16:57)
[2021-12-11] MEDS: polyethylene glycoL 3350 17 GM POWD.PACK PO (09:41)
[2021-12-11] MEDS: TIZANIDINE HCL 4 MG TABLET PO ×2 (09:41→16:57)
[2021-12-11] MEDS: METOPROLOL SUCCINATE EXT REL 50 MG TABCR PO (09:41)
[2021-12-11] MEDS: ROSUVASTATIN 10 MG TABLET 40 MG PO (09:41)
[2021-12-11] MEDS: LUBIPROSTONE 24 MCG CAPSULE PO (09:41)
[2021-12-11] MEDS: EUCERIN CREAM 120 GM JAR 1 APPLIC TOPICAL (09:41)
[2021-12-11] MEDS: SILVERGEL (ELTA) 45 ML 1 APPLIC TOPICAL (09:42)
[2021-12-11] MEDS: TOLNAFTATE 1% POWDER 45 GM BTL 1 APPLIC TOPICAL ×2 (09:42→20:48)
[2021-12-11 11:59] LABS: Glucose Point of Care 175 mg/dl (65-105)
--- NOTE | 2021-12-11 13:24 | PM.IMPN ---
Progress Note: A&P Assessment and Plan (1) Osteomyelitis of coccyx: Code(s): M86.9 - Osteomyelitis, unspecified Status: Acute Assessment and Plan: -original cultures after discharge for osteomyelitis recently were thought to be contaminated due to the species of Staph. Repeat cultures were performed and were negative however, surgery recommends 6 weeks of IV antibiotics with cefepime and vancomycin regardless of the repeat blood culture results. -PICC line has been placed. - We are awaiting placement at this time. - Continue to turn Q2 hours. (2) Decubitus ulcer of sacral area: Qualifiers: Pressure injury stage: unspecified pressure injury stage Qualified Code(s): L89.159 - Pressure ulcer of sacral region, unspecified stage Code(s): L89.159 - Pressure ulcer of sacral region, unspecified stage Status: Acute Assessment and Plan: - Continue daily dressings of silvadene with a dry dressing. - Turn Q2 hours. - Continue IV abx. 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 - Self Catheterizes. - Had Fecal Impaction upon arrival to ER, however it has resolved now. (4) Coronary artery disease: Qualifiers: Coronary Disease-Associated Artery/Lesion type: unspecified vessel or lesion type [place] vs. transplanted heart: unspecified whether [place] or transplanted heart Associated angina: unspecified whether angina present Qualified Code(s): I25.10 - Atherosclerotic heart disease of [place] coronary artery without angina pectoris Code(s): I25.10 - Atherosclerotic heart disease of [place] coronary artery without angina pectoris Status: Chronic Assessment and Plan: -Past medical history of CABG. No current chest pain, continue Brilinta. 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 Diabetes mellitus complication status: without complication Qualified Code(s): E11.9 - Type 2 diabetes mellitus without complications; Z79.4 - winterizer (current) use of insulin Code(s): E11.9 - Type 2 diabetes mellitus without complications Status: Acute Assessment and Plan: - Continue SSI - Hypoglycemic protocol - Glucose checks AC and HS - Diabetic diet (7) Decubitus ulcer of foot: Qualifiers: Laterality: right Pressure injury stage: unspecified pressure injury stage Qualified Code(s): L89.899 - Pressure ulcer of other site, unspecified stage Code(s): L89.899 - Pressure ulcer of other site, unspecified stage Status: Acute Assessment and Plan: - Continue daily dressing changes with Silvadene and waffle boots. (8) Peripheral vascular disease: Code(s): I73.9 - Peripheral vascular disease, unspecified Status: Acute Assessment and Plan: - ABIs taken during last visit showed abnormally low bilateral TERE of 0.67 on the right and 0.76 on the left. Abnormal the right TBI 0.53. Referral was made to Dr. Catalan, Vascular Surgery, upon discharge on 12/03. Likely contributing to chronic nonhealing ulcers of both feet. (9) Hypertension: Qualifiers: Hypertension type: unspecified Qualified Code(s): I10 - Essential (primary) hypertension Code(s): I10 - Essential (primary) hypertension Status: Acute Assessment and Plan: - Patient normotensive - Continue home carvedilol 6.25 BID. - Continue to monitor. Time Spent With Patient Time with patient: 15 - 25 minutes Subjective Date/time seen: 12/11/21 0942 This patient was examined at the bedside today in interval assessment. He currentl
[2021-12-11 14:00] VITALS: BP 121/58; PULSE 72; RESP 16; TEMP 35.9; O2SAT 100
--- NOTE | 2021-12-11 15:48 | PCNFU ---
Nutrition Follow-Up Complete: Increased protein needs R/T wounds AEB Stage III Sacrum Pressure Ulcer, Stage II Right Lower Buttock Pressure Ulcer, Unstagable Right Heel Pressure Ulcer Goal:Pt to meet >75% of estimated nutritional needs Pt is progressing towards goal. Continue with current goal at this time. Pt current nutrition is Heart Healthy and dietary supplements Last recorded weight is 92.2 kg, no new weight reported. Recommend re-weighing pt prior to discharge. Bowel Motility: +BM reported 12/09/21 Labs Reviewed: Hgb 9.9, Hct 32.1, Na 135, Glu 175 Meds Noted: Coreg, Maxipime, Colace, Flonase, Heparin Sodium, Amitiza, Troprol XL, Protonix, Miralax, Crestor, Brilinta, Zanaflex, Vancomycin Skin: Sacrum Pressure Ulcer - Stage III, Right Lower Buttock Pressure Ulcer - Stage II, Scrotum Maceration, Right Heel Pressure Ulcer - Unstageable, Right Plantar Diabetic Foot Ulcer, Right Anterior Lower Leg Abrasion Additional Notes: Current nutrition is a heart healthy diet with reported intake of 100% x2, 70%, 75%, and 30%. Pt is receiving dietary supplements of Glucerna Shake TID and Edward BID. Glucerna Shake is providing an additional 220kcal and 10g of protein per shake and Edward is providing an additional 90kcal and 2.5g of protein per drink. Pt had PICC line placed. Agree with diet orders at this time. Will continue to follow. Will monitor labs, medication, wt, and reported intake every 5 days
[2021-12-11 17:13] LABS: Glucose Point of Care 173 mg/dl (65-105)
[2021-12-11] MEDS: NORTRIPTYLINE HCL 25 MG CAPSULE 150 MG PO (20:47)
[2021-12-11 22:00] VITALS: BP 110/62; PULSE 84; RESP 16; TEMP 36.2; O2SAT 100
[2021-12-12] VITALS (7 sets, daily range): BP systolic 107–161; BP diastolic 68–98; PULSE 70–96; RESP 16; TEMP 36.2–36.7; O2SAT 98–100
[2021-12-12] MEDS: FLUTICASONE PROPIONATE 0.05% NA SPR 16 GM BTL (*BKC) 2 SPRAY NASAL (05:22)
[2021-12-12] MEDS: CENTRAL LINE FLUSH 10 ML IV PUSH ×3 (05:22→22:39)
[2021-12-12 05:45] LABS: Basophils Absolute Auto 0.1 K/mm3 (0.0-0.1); Basophils Percent Auto 0.7 % (0.2-1.2); Eosinophils Absolute Auto 0.4 K/mm3 (0-0.3); Eosinophils Percent Auto 4.1 % (0-4.4); Hematocrit 31.3 % (42.0-52.0); Hemoglobin 9.5 g/dL (14.0-18.0); Immature Granulocyte Absolute 0.05 K/mm3 (0.00-0.031); Immature Granulocyte Percent A 0.6 % (0-0.5); Lymphocytes Absolute Auto 1.84 K/mm3 (0.9-3.2); Lymphocytes Percent Auto 21.7 % (18.3-44.2); Mean Corpuscular HGB Conc 30.4 g/dl (32-36); Mean Corpuscular Hemoglobin 26.1 pg (26-34); Mean Platelet Volume 8.9 fl (7.4-10.4); Monocytes Absolute Auto 0.6 K/mm3 (0.1-0.6); Monocytes Percent Auto 6.6 % (2.6-8.5); Neutrophils Absolute Auto 5.6 K/mm3 (1.3-6.7); Neutrophils Percent Auto 66.3 % (45.5-73.1); Platelet Count Result 368 k/mm3 (150-375); Red Blood Count 3.64 M/mm3 (4.6-6.20); Red Cell Distribution Width 14.1 % (11.5-14.5); White Blood Count 8.5 K/mm3 (4.5-10.0)
[2021-12-12 05:57] LABS: Alanine Aminotransferase 175 U/L (4-50); Albumin Level 3.3 g/dL (3.5-5.1); Alkaline Phosphatase 74 U/L (38-126); Anion Gap 5 mmol/L (8-16); Aspartate Amino Transferase 105 U/L (17-59); Bilirubin,Total 0.2 mg/dL (0.2-1.3); Blood Urea Nitrogen 17 mg/dL (9-20); Calcium 8.4 mg/dL (8.4-10.2); Carbon Dioxide 29 mmol/L (22-30); Chloride 101 mmol/L (98-107); Estimated CRCL calculation 94 ml/min; Estimated Glomerular Filt Rate > 60; Glucose 179 mg/dL (65-110); Magnesium 2.1 mg/dL (1.6-2.3); Potassium 4.3 mmol/L (3.4-5.0); Sodium 135 mmol/L (137-145)
[2021-12-12 08:12] LABS: Glucose Point of Care 142 mg/dl (65-105)
[2021-12-12] MEDS: polyethylene glycoL 3350 17 GM POWD.PACK PO (08:32)
[2021-12-12] MEDS: TICAGRELOR 90 MG TABLET PO (08:33)
[2021-12-12] MEDS: ROSUVASTATIN 10 MG TABLET 40 MG PO (08:33)
[2021-12-12] MEDS: TIZANIDINE HCL 4 MG TABLET PO ×3 (08:34→17:10)
[2021-12-12] MEDS: LUBIPROSTONE 24 MCG CAPSULE PO ×2 (08:35→17:09)
[2021-12-12] MEDS: PANTOPRAZOLE 40 MG TABLET PO (08:36)
[2021-12-12] MEDS: HEPARIN SODIUM 5,000 UNITS/ML VIAL 5000 UNITS SUB-Q ×2 (08:37→20:06)
[2021-12-12] MEDS: TOLNAFTATE 1% POWDER 45 GM BTL 1 APPLIC TOPICAL ×2 (08:37→20:07)
[2021-12-12] MEDS: SILVERGEL (ELTA) 45 ML 1 APPLIC TOPICAL (08:37)
[2021-12-12] MEDS: METOPROLOL SUCCINATE EXT REL 50 MG TABCR PO (08:37)
[2021-12-12] MEDS: EUCERIN CREAM 120 GM JAR 1 APPLIC TOPICAL (08:37)
[2021-12-12] MEDS: DOCUSATE SODIUM 100 MG CAPSULE PO ×2 (08:41→20:05)
--- NOTE | 2021-12-12 10:56 | PM.IMPN ---
Progress Note: A&P Assessment and Plan (1) Osteomyelitis of coccyx: Code(s): M86.9 - Osteomyelitis, unspecified Status: Acute Assessment and Plan: -original cultures after discharge for osteomyelitis recently were thought to be contaminated due to the species of Staph. Repeat cultures were performed and were negative however, surgery recommends 6 weeks of IV antibiotics with cefepime and vancomycin regardless of the repeat blood culture results. -PICC line has been placed. - We are awaiting placement at this time. - Continue to turn Q2 hours. -suspect patient will be ready for discharge tomorrow. I have had discussion with care coordination to make sure he is potentially ready for discharge tomorrow. (2) Decubitus ulcer of sacral area: Qualifiers: Pressure injury stage: unspecified pressure injury stage Qualified Code(s): L89.159 - Pressure ulcer of sacral region, unspecified stage Code(s): L89.159 - Pressure ulcer of sacral region, unspecified stage Status: Acute Assessment and Plan: - Continue daily dressings of silvadene with a dry dressing. - Turn Q2 hours. - Continue IV abx. 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 - Self Catheterizes. - Had Fecal Impaction upon arrival to ER, however it has resolved now. -continue home bowel regimen (4) Coronary artery disease: Qualifiers: Coronary Disease-Associated Artery/Lesion type: unspecified vessel or lesion type [place] vs. transplanted heart: unspecified whether [place] or transplanted heart Associated angina: unspecified whether angina present Qualified Code(s): I25.10 - Atherosclerotic heart disease of [place] coronary artery without angina pectoris Code(s): I25.10 - Atherosclerotic heart disease of [place] coronary artery without angina pectoris Status: Chronic Assessment and Plan: -Past medical history of CABG. No current chest pain, continue Brilinta. 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 driver use Diabetes mellitus complication status: without complication Qualified Code(s): E11.9 - Type 2 diabetes mellitus without complications; Z79.4 - tank terminal gauger (current) use of insulin Code(s): E11.9 - Type 2 diabetes mellitus without complications Status: Acute Assessment and Plan: - Continue SSI - Hypoglycemic protocol - Glucose checks AC and HS - Diabetic diet (7) Decubitus ulcer of foot: Qualifiers: Laterality: right Pressure injury stage: unspecified pressure injury stage Qualified Code(s): L89.899 - Pressure ulcer of other site, unspecified stage Code(s): L89.899 - Pressure ulcer of other site, unspecified stage Status: Acute Assessment and Plan: - Continue daily dressing changes with Silvadene and waffle boots. (8) Peripheral vascular disease: Code(s): I73.9 - Peripheral vascular disease, unspecified Status: Acute Assessment and Plan: - ABIs taken during last visit showed abnormally low bilateral TERE of 0.67 on the right and 0.76 on the left. Abnormal the right TBI 0.53. Referral was made to Dr. Catalan, Vascular Surgery, upon discharge on 12/03. Likely contributing to chronic nonhealing ulcers of both feet. (9) Hypertension: Qualifiers: Hypertension type: unspecified Qualified Code(s): I10 - Essential (primary) hypertension Code(s): I10 - Essential (primary) hypertension Status: Acute Assessment and Plan: - Patient normotensive - Continue home carvedilol 6.25 BID. - Continue to monitor.
[2021-12-12] MEDS: ACETAMINOPHEN 325 MG TABLET 650 MG PO (10:59)
[2021-12-12] MEDS: carvediloL 6.25 MG TABLET PO ×2 (11:00→17:09)
[2021-12-12 12:32] LABS: Glucose Point of Care 175 mg/dl (65-105)
[2021-12-12] MEDS: traMADol HCL (*CRX) 50 MG TABLET PO ×2 (14:26→20:05)
[2021-12-12 16:49] LABS: Glucose Point of Care 151 mg/dl (65-105)
[2021-12-12] MEDS: NORTRIPTYLINE HCL 25 MG CAPSULE 150 MG PO (20:06)
[2021-12-12 22:39] LABS: Glucose Point of Care 176 mg/dl (65-105)
[2021-12-12] MEDS: polyethylene glycoL 3350 238 GM BOTTLE PO (23:36)
[2021-12-13 03:14] LABS: Basophils Absolute Auto 0.1 K/mm3 (0.0-0.1); Basophils Percent Auto 0.5 % (0.2-1.2); Eosinophils Absolute Auto 0.2 K/mm3 (0-0.3); Eosinophils Percent Auto 1.2 % (0-4.4); Hematocrit 39.4 % (42.0-52.0); Hemoglobin 12.4 g/dL (14.0-18.0); Immature Granulocyte Absolute 0.07 K/mm3 (0.00-0.031); Immature Granulocyte Percent A 0.5 % (0-0.5); Immature Platelet Fraction Pct 1.1 % (0.9-11.2); Lymphocytes Absolute Auto 1.12 K/mm3 (0.9-3.2); Lymphocytes Percent Auto 7.3 % (18.3-44.2); Mean Corpuscular HGB Conc 31.5 g/dl (32-36); Mean Corpuscular Hemoglobin 26.3 pg (26-34); Mean Corpuscular Volume 83.7 fl (80-100); Monocytes Absolute Auto 0.7 K/mm3 (0.1-0.6); Monocytes Percent Auto 4.3 % (2.6-8.5); Neutrophils Absolute Auto 13.2 K/mm3 (1.3-6.7); Neutrophils Percent Auto 86.2 % (45.5-73.1); Red Blood Count 4.71 M/mm3 (4.6-6.20); Red Cell Distribution Width 14.2 % (11.5-14.5); White Blood Count 15.3 K/mm3 (4.5-10.0)
[2021-12-13 03:23] LABS: Alanine Aminotransferase 148 U/L (4-50); Albumin Level 3.9 g/dL (3.5-5.1); Alkaline Phosphatase 109 U/L (38-126); Anion Gap 6 mmol/L (8-16); Aspartate Amino Transferase 46 U/L (17-59); Bilirubin,Total 0.4 mg/dL (0.2-1.3); Blood Urea Nitrogen 16 mg/dL (9-20); Calcium 9.2 mg/dL (8.4-10.2); Carbon Dioxide 27 mmol/L (22-30); Chloride 102 mmol/L (98-107); Estimated CRCL calculation 94 ml/min; Estimated Glomerular Filt Rate > 60; Glucose 179 mg/dL (65-110); Magnesium 2.1 mg/dL (1.6-2.3); Potassium 5.2 mmol/L (3.4-5.0); Sodium 135 mmol/L (137-145)
[2021-12-13 03:46] LABS: Vancomycin Trough 20.1 ug/mL (10.0-20.0)
[2021-12-13] MEDS: CENTRAL LINE FLUSH 10 ML IV PUSH ×3 (04:59→20:55)
[2021-12-13 06:00] VITALS: BP 184/105; PULSE 98; RESP 16; TEMP 36.3; O2SAT 100
[2021-12-13] MEDS: FLUTICASONE PROPIONATE 0.05% NA SPR 16 GM BTL (*BKC) 2 SPRAY NASAL (06:55)
[2021-12-13 08:00] VITALS: PULSE 100; RESP 16; O2SAT 100
[2021-12-13 08:02] LABS: Glucose Point of Care 201 mg/dl (65-105)
[2021-12-13] MEDS: TIZANIDINE HCL 4 MG TABLET PO ×2 (08:07→17:33)
[2021-12-13] MEDS: SODIUM POLYSTYRENE SULFONONATE 15 GM/60 ML BTL PO (08:07)
[2021-12-13] MEDS: ROSUVASTATIN 10 MG TABLET 40 MG PO (08:07)
[2021-12-13 08:08] VITALS: PULSE 100
[2021-12-13] MEDS: PANTOPRAZOLE 40 MG TABLET PO (08:08)
[2021-12-13] MEDS: DOCUSATE SODIUM 100 MG CAPSULE PO ×2 (08:08→20:52)
[2021-12-13] MEDS: LUBIPROSTONE 24 MCG CAPSULE PO ×2 (08:08→17:32)
[2021-12-13] MEDS: TICAGRELOR 90 MG TABLET PO (08:08)
[2021-12-13] MEDS: carvediloL 6.25 MG TABLET PO ×2 (08:08→17:32)
[2021-12-13] MEDS: METOPROLOL SUCCINATE EXT REL 50 MG TABCR PO (08:08)
[2021-12-13] MEDS: amLODIPine BESYLATE 5 MG TABLET PO (08:09)
[2021-12-13] MEDS: HEPARIN SODIUM 5,000 UNITS/ML VIAL 5000 UNITS SUB-Q ×2 (08:09→20:52)
[2021-12-13] MEDS: EUCERIN CREAM 120 GM JAR 1 APPLIC TOPICAL (08:09)
[2021-12-13] MEDS: SILVERGEL (ELTA) 45 ML 1 APPLIC TOPICAL (08:09)
[2021-12-13] MEDS: INSULIN ASPART (*BKC) 100 UNITS/ML SUB-Q ×3 (08:10→17:31)
[2021-12-13] MEDS: TOLNAFTATE 1% POWDER 45 GM BTL 1 APPLIC TOPICAL ×2 (08:12→20:55)
--- NOTE | 2021-12-13 11:14 | PM.IMPN ---
Progress Note: A&P Assessment and Plan (1) Osteomyelitis of coccyx: Code(s): M86.9 - Osteomyelitis, unspecified Status: Acute Assessment and Plan: -original cultures after discharge for osteomyelitis recently were thought to be contaminated due to the species of Staph. Repeat cultures were performed and were negative however, surgery recommends 6 weeks of IV antibiotics with cefepime and vancomycin regardless of the repeat blood culture results. -PICC line has been placed. - We are awaiting placement at this time. - Continue to turn Q2 hours. -Pt. unable to discharge today as he has elevated BP that is uncharacteristic for him with DBP >100, elevated Potassium, elevated Transaminases, RUQ abdominal pain, and has not had a BM in 5 days. - I spoke with care coordination and am advised that the site that the pt. will be discharging to may not be able to dose the abx every 18 hours. She is discussing with him. In the meantime, we will continue the current abx. (2) Decubitus ulcer of sacral area: Qualifiers: Pressure injury stage: unspecified pressure injury stage Qualified Code(s): L89.159 - Pressure ulcer of sacral region, unspecified stage Code(s): L89.159 - Pressure ulcer of sacral region, unspecified stage Status: Acute Assessment and Plan: - Change dressings as according to wound care management recommendations. - Turn Q2 hours to offload any prolonged pressure on pressure points. - Continue IV abx for 6 weeks upon discharge. 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 - Self Catheterizes. - Had Fecal Impaction upon arrival to ER, however it has resolved now. -continue home bowel regimen - Pt. continues to be constipated and has not had a BM now for 5 days. The pt. will have Kayexalate secondary to his Hyperkalemia as well as he will have a dulcolax suppository. - Monitor as concern for potential recurrence of fecal impaction may occur. (4) Coronary artery disease: Qualifiers: Coronary Disease-Associated Artery/Lesion type: unspecified vessel or lesion type [place] vs. transplanted heart: unspecified whether [place] or transplanted heart Associated angina: unspecified whether angina present Qualified Code(s): I25.10 - Atherosclerotic heart disease of [place] coronary artery without angina pectoris Code(s): I25.10 - Atherosclerotic heart disease of [place] coronary artery without angina pectoris Status: Chronic Assessment and Plan: -Past medical history of CABG. No current chest pain, continue Brilinta. 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: with [facility] use Diabetes mellitus complication status: without complication Qualified Code(s): E11.9 - Type 2 diabetes mellitus without complications; Z79.4 - custodial (current) use of insulin Code(s): E11.9 - Type 2 diabetes mellitus without complications Status: Acute Assessment and Plan: - Continue SSI - Hypoglycemic protocol - Glucose checks AC and HS - Diabetic diet (7) Decubitus ulcer of foot: Qualifiers: Laterality: right Pressure injury stage: unspecified pressure injury stage Qualified Code(s): L89.899 - Pressure ulcer of other site, unspecified stage Code(s): L89.899 - Pressure ulcer of other site, unspecified stage Status: Acute Assessment and Plan: - Continue daily dressing changes as recommended per wound care. (8) Peripheral vascular disease: Code(s): I73.9 - Peripheral vascular disease, unspecified Status: Chronic Assessment and Plan: - TERE
[2021-12-13] MEDS: BISACODYL 10 MG SUPPOSITORY RECTAL (11:35)
[2021-12-13] MEDS: hydrALAZINE HCL 20 MG/ML VIAL 10 MG IV PUSH (11:36)
[2021-12-13 11:50] LABS: Glucose Point of Care 236 mg/dl (65-105)
[2021-12-13 14:00] VITALS: BP 119/77; PULSE 120; RESP 20; TEMP 36.8; O2SAT 93
[2021-12-13 14:17] LABS: Appearance Urine Slightly Cloudy (Clear); Bilirubin Urine Negative (Negative); Blood Urine Negative (Negative); Color Urine Yellow (Yellow); Glucose Urine UA 2+ mg/dL (Negative); Ketones Urine Negative (Negative); Leukocyte Esterase Ur Negative LEU/UL (Negative); Nitrate Urine Negative (Negative); Protein Urine Negative (Negative); Urobilinogen Urine 0.2 mg/dL (<2.0); pH Urine 6.5 (5.0-9.0)
[2021-12-13 14:22] LABS: Bacteria Urine Trace /hpf; Mucus Urine Rare /lpf
[2021-12-13 14:23] LABS: Add Urine Microscopic? YES
[2021-12-13 17:17] LABS: Glucose Point of Care 247 mg/dl (65-105)
[2021-12-13 17:32] VITALS: PULSE 105
[2021-12-13] MEDS: NORTRIPTYLINE HCL 25 MG CAPSULE 150 MG PO (20:51)
[2021-12-13 22:00] VITALS: BP 117/79; PULSE 106; RESP 18; TEMP 36.3; O2SAT 96
[2021-12-14] VITALS (9 sets, daily range): BP systolic 90–107; BP diastolic 58–68; PULSE 95–101; RESP 18; TEMP 36.2–37.2; O2SAT 94–100
[2021-12-14 00:54] LABS: Anion Gap 8 mmol/L (8-16); Blood Urea Nitrogen 37 mg/dL (9-20); Calcium 8.8 mg/dL (8.4-10.2); Carbon Dioxide 26 mmol/L (22-30); Chloride 98 mmol/L (98-107); Estimated CRCL calculation 77 ml/min; Estimated Glomerular Filt Rate > 60; Glucose 201 mg/dL (65-110); Potassium 4.6 mmol/L (3.4-5.0); Sodium 132 mmol/L (137-145)
[2021-12-14] MEDS: CENTRAL LINE FLUSH 10 ML IV PUSH ×3 (04:27→21:10)
[2021-12-14] MEDS: FLUTICASONE PROPIONATE 0.05% NA SPR 16 GM BTL (*BKC) 2 SPRAY NASAL (06:11)
[2021-12-14 07:26] LABS: Basophils Absolute Auto 0.1 K/mm3 (0.0-0.1); Basophils Percent Auto 0.3 % (0.2-1.2); Eosinophils Absolute Auto 0.1 K/mm3 (0-0.3); Eosinophils Percent Auto 0.3 % (0-4.4); Hemoglobin 10.2 g/dL (14.0-18.0); Immature Granulocyte Absolute 0.13 K/mm3 (0.00-0.031); Immature Granulocyte Percent A 0.7 % (0-0.5); Lymphocytes Absolute Auto 1.98 K/mm3 (0.9-3.2); Lymphocytes Percent Auto 10.7 % (18.3-44.2); Mean Corpuscular HGB Conc 31.9 g/dl (32-36); Mean Corpuscular Hemoglobin 26.2 pg (26-34); Mean Corpuscular Volume 82.3 fl (80-100); Monocytes Absolute Auto 1.3 K/mm3 (0.1-0.6); Monocytes Percent Auto 6.8 % (2.6-8.5); Neutrophils Absolute Auto 15.1 K/mm3 (1.3-6.7); Neutrophils Percent Auto 81.2 % (45.5-73.1); Platelet Count Result 469 k/mm3 (150-375); Red Blood Count 3.89 M/mm3 (4.6-6.20); Red Cell Distribution Width 14.4 % (11.5-14.5); White Blood Count 18.6 K/mm3 (4.5-10.0)
[2021-12-14 07:36] LABS: Alanine Aminotransferase 79 U/L (6-50); Albumin Level 3.3 g/dL (3.5-5.1); Alkaline Phosphatase 78 U/L (38-126); Anion Gap 6 mmol/L (8-16); Aspartate Amino Transferase 36 U/L (17-59); Bilirubin,Total 0.3 mg/dL (0.2-1.3); Blood Urea Nitrogen 45 mg/dL (9-20); Calcium 8.4 mg/dL (8.4-10.2); Carbon Dioxide 25 mmol/L (22-30); Chloride 97 mmol/L (98-107); Estimated CRCL calculation 70 ml/min; Estimated Glomerular Filt Rate > 60; Glucose 211 mg/dL (65-110); Lipase 61 U/L (23-300); Magnesium 2.2 mg/dL (1.6-2.3); Potassium 4.3 mmol/L (3.4-5.0); Sodium 128 mmol/L (137-145)
[2021-12-14 07:58] LABS: Glucose Point of Care 195 mg/dl (65-105)
--- NOTE | 2021-12-14 08:06 | ECG_ITS ---
Measurements Intervals [place] Rate: 98 P: 59 MO: 137 QRS: 120 QRSD: 121 T: 116 QT: 360 QTc: 461 Interpretive Statements SINUS RHYTHM INTRAVENTRICULAR CONDUCTION DELAY DELAYED PRECORDIAL R/S TRANSITION MINIMAL Q WAVES- INFERIOR LEADS BORDERLINE ST-T WAVE ABNORMALITY- HIGH LATERAL LEADS BASELINE WANDER- I, II, AVR, AVL, AVF, V3 BORDERLINE ECG Electronically Signed On 12-14-2021 10:22:29 CDT by Shorty Rowe D.O.
[2021-12-14] MEDS: SILVERGEL (ELTA) 45 ML 1 APPLIC TOPICAL (08:13)
[2021-12-14] MEDS: TICAGRELOR 90 MG TABLET PO (08:14)
[2021-12-14] MEDS: ROSUVASTATIN 10 MG TABLET 40 MG PO (08:14)
[2021-12-14] MEDS: METOPROLOL SUCCINATE EXT REL 50 MG TABCR PO (08:15)
[2021-12-14] MEDS: DOCUSATE SODIUM 100 MG CAPSULE PO ×2 (08:15→20:39)
[2021-12-14] MEDS: LUBIPROSTONE 24 MCG CAPSULE PO (08:16)
[2021-12-14] MEDS: EUCERIN CREAM 120 GM JAR 1 APPLIC TOPICAL (08:17)
[2021-12-14] MEDS: PANTOPRAZOLE 40 MG TABLET PO (08:17)
[2021-12-14] MEDS: HEPARIN SODIUM 5,000 UNITS/ML VIAL 5000 UNITS SUB-Q ×2 (08:17→20:39)
[2021-12-14] MEDS: carvediloL 6.25 MG TABLET PO (08:17)
[2021-12-14] MEDS: TIZANIDINE HCL 4 MG TABLET PO ×3 (08:18→16:45)
[2021-12-14] MEDS: TOLNAFTATE 1% POWDER 45 GM BTL 1 APPLIC TOPICAL ×2 (08:19→20:39)
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
[2021-12-14 11:55] LABS: Glucose Point of Care 179 mg/dl (65-105)
[2021-12-14 15:22] LABS: Glucose Point of Care 210 mg/dl (65-105)
[2021-12-14] MEDS: INSULIN ASPART (*BKC) 100 UNITS/ML SUB-Q (16:44)
[2021-12-14] MEDS: NORTRIPTYLINE HCL 25 MG CAPSULE 150 MG PO (20:39)
[2021-12-14] MEDS: CENTRAL LINE FLUSH 20 ML IV PUSH (21:10)
[2021-12-14 22:12] LABS: Glucose Point of Care 162 mg/dl (65-105)
[2021-12-14 23:20] LABS: Vancomycin Trough 14.1 ug/mL (10.0-20.0)
[2021-12-15] VITALS (7 sets, daily range): BP systolic 95–102; BP diastolic 61–65; PULSE 84–100; RESP 16–18; TEMP 36.4–36.8; O2SAT 98–100
--- NOTE | 2021-12-15 | ECHO_ITS ---
Patient Info Name: Jeremiah Rodriguez Age: 56 years : 1965 Gender: Male Ht: 71 in Wt: 203 lbs BSA: 2.17 m2 HR: 107 bpm BP: 102 / 65 mmHg Heart Rhythm: Sinus Rhythm Exam Date: 12/15/2021 12:08 PM Exam Location: [facility] Patient Status: Inpatient Admit Date: 12/06/2021 Staff Ordering Physician: Marie Loyola NP Dry Wall Installations Mechanic: Chay Paredes RDCS, RT Attending Provider: Latosha Black Referring Physician: Nir GUTIERREZ; Exam Type: CA echo doppler color flow Study Info Indications R00.0 - Tachycardia, unspecified Complete two-dimensional, color flow and Doppler transthoracic echocardiogram is performed. Strain analysis performed. Summary 1. Complete two-dimensional, color flow and Doppler transthoracic echocardiogram is performed. 2. Left ventricular chamber dimension is normal. 3. Left ventricular systolic function is normal, estimated at 65-70%. 4. There is moderately increased left ventricular wall thickness. 5. The left ventricular diastolic function is grade I diastolic dysfunction. 6. There is trace tricuspid valve regurgitation. 7. Unable to estimate PA systolic pressure due to poor spectral resolution of tricuspid regurgitant jet velocity. 8. There is mild mitral valve regurgitation. Left Ventricle Left ventricular chamber dimension is normal. Left ventricular systolic function is normal, estimated at 65-70%. There is moderately increased left ventricular wall thickness. The left ventricular diastolic function is grade I diastolic dysfunction. Global longitudinal strain is moderately elevated at -13 %. Right Ventricle Right ventricular chamber dimension is normal. Right ventricular systolic function is normal. Left Atria Left atrial chamber dimension is normal. Right Atria Right atrial chamber dimension is normal. Atrial Septum Thin and hypermobile. Aortic Valve The aortic valve is trileaflet. There is no aortic valve stenosis. There is no aortic valve regurgitation. Pulmonic Valve The pulmonic valve is normal. There is trace pulmonic regurgitation. Mitral Valve The mitral valve has normal leaflets. There is mild mitral valve regurgitation. There is mild mitral valve calcification. Tricuspid Valve The tricuspid valve leaflets are normal. There is trace tricuspid valve regurgitation. Unable to estimate PA systolic pressure due to poor spectral resolution of tricuspid regurgitant jet velocity. Pericardium/Pleural The pericardium appears normal. There is no pericardial effusion. Inferior Vena Cava Normal inferior vena cava with >50% collapse upon inspiration consistent with normal right atrial pressure, 5 mmHg. Aorta The aortic root size at the sinus of Valsalva is normal. Left Ventricular Outflow Tract Name Value Normal LVOT 2D LVOT Diameter 2.1 cm LVOT Doppler LVOT Peak Gradient 4 mmHg LVOT Mean Gradient 2 mmHg LVOT VTI 14 cm LVOT VTI/AV VTI Ratio 0.7 LVOT Stroke Volume 51 ml
[2021-12-15] MEDS: CENTRAL LINE FLUSH 20 ML IV PUSH (05:10)
[2021-12-15] MEDS: CENTRAL LINE FLUSH 10 ML IV PUSH ×2 (05:10→14:18)
[2021-12-15] MEDS: FLUTICASONE PROPIONATE 0.05% NA SPR 16 GM BTL (*BKC) 2 SPRAY NASAL (05:22)
[2021-12-15 05:29] LABS: Hematocrit 29.3 % (42.0-52.0); Hemoglobin 9.1 g/dL (14.0-18.0); Mean Corpuscular HGB Conc 31.1 g/dl (32-36); Mean Corpuscular Hemoglobin 26.1 pg (26-34); Mean Corpuscular Volume 84.2 fl (80-100); Platelet Count Result 351 k/mm3 (150-375); Red Blood Count 3.48 M/mm3 (4.6-6.20); Red Cell Distribution Width 14.4 % (11.5-14.5); White Blood Count 14.2 K/mm3 (4.5-10.0)
[2021-12-15 05:41] LABS: Alanine Aminotransferase 141 U/L (6-50); Albumin Level 3.1 g/dL (3.5-5.1); Alkaline Phosphatase 85 U/L (38-126); Anion Gap 3 mmol/L (8-16); Aspartate Amino Transferase 87 U/L (17-59); Bilirubin,Total 0.3 mg/dL (0.2-1.3); Blood Urea Nitrogen 35 mg/dL (9-20); Calcium 8.3 mg/dL (8.4-10.2); Carbon Dioxide 29 mmol/L (22-30); Chloride 100 mmol/L (98-107); Estimated CRCL calculation 85 ml/min; Estimated Glomerular Filt Rate > 60; Glucose 122 mg/dL (65-110); Potassium 4.1 mmol/L (3.4-5.0); Sodium 132 mmol/L (137-145)
[2021-12-15 08:04] LABS: Glucose Point of Care 111 mg/dl (65-105)
[2021-12-15] MEDS: carvediloL 6.25 MG TABLET PO (08:53)
[2021-12-15] MEDS: DOCUSATE SODIUM 100 MG CAPSULE PO (08:53)
[2021-12-15] MEDS: ROSUVASTATIN 10 MG TABLET 40 MG PO (08:55)
[2021-12-15] MEDS: TICAGRELOR 90 MG TABLET PO (08:55)
[2021-12-15] MEDS: PANTOPRAZOLE 40 MG TABLET PO (08:56)
[2021-12-15] MEDS: polyethylene glycoL 3350 17 GM POWD.PACK PO (08:56)
[2021-12-15] MEDS: TIZANIDINE HCL 4 MG TABLET PO ×2 (08:56→14:18)
[2021-12-15] MEDS: LUBIPROSTONE 24 MCG CAPSULE PO (08:56)
[2021-12-15] MEDS: HEPARIN SODIUM 5,000 UNITS/ML VIAL 5000 UNITS SUB-Q (08:56)
[2021-12-15] MEDS: SILVERGEL (ELTA) 45 ML 1 APPLIC TOPICAL (08:57)
[2021-12-15] MEDS: TOLNAFTATE 1% POWDER 45 GM BTL 1 APPLIC TOPICAL (08:57)
[2021-12-15] MEDS: EUCERIN CREAM 120 GM JAR 1 APPLIC TOPICAL (08:57)
[2021-12-15] MEDS: INSULIN ASPART (*BKC) 100 UNITS/ML SUB-Q ×2 (09:00→14:18)
[2021-12-15 11:55] LABS: Glucose Point of Care 188 mg/dl (65-105)
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
[2021-12-15 15:50] LABS: EDCOVIDSCREEN Negative (Negative)
== END 2021-12-15 16:45 | DRG 637 ==
LOC: ANHED 12-06 01:28 → ANH3MEDSUR 12-06 03:16
PROVIDERS: Nurse Practitioner; Physician Assistant; Student in an Organized Health Care Education/Training Program; Admitting Provider Internal Medicine; Emergency Provider Emergency Medicine; PCP Internal Medicine; Visit Provider Nurse Practitioner Adult Health
DX: E11.69 Type 2 diabetes mellitus with other specified complication (principal); L89.153 Pressure ulcer of sacral region, stage 3; M86.18 Other acute osteomyelitis, other site; E87.1 Hypo-osmolality and hyponatremia; G82.20 Paraplegia, unspecified; G37.3 Acute transverse myelitis in demyelinating disease of central nervous system; Z20.822 Contact with and (suspected) exposure to COVID-19; L89.312 Pressure ulcer of right buttock, stage 2; L89.610 Pressure ulcer of right heel, unstageable; I25.10 Atherosclerotic heart disease of native coronary artery without angina pectoris; I10 Essential (primary) hypertension; N31.9 Neuromuscular dysfunction of bladder, unspecified; I73.9 Peripheral vascular disease, unspecified; E87.5 Hyperkalemia; F41.8 Other specified anxiety disorders; E55.9 Vitamin D deficiency, unspecified; Z95.1 Presence of aortocoronary bypass graft; Z79.4 Long term (current) use of insulin; Z99.3 Dependence on wheelchair
CPT/HCPCS: 36415; 36569; 71045; 74018; 74176; 76705; 80048; 80053; 80202; 81001; 82565; 82948; 83605; 83690; 83735; 85025; 85027; 85055; 85652; 87040; 87070; 87077; 87086; 87147; 87186; 87205; 87426; 93005; 93306; 94640; 96372; 97110; 97162; 97167; 97530; 97535; 99285; A9270; C1751; C9803; G0378; J0360; J0692; J0696; J1644; J1650; J1815; J2543; J3370; U0003; U0005